=== PATIENT | female | born 1970 | race American Indian/Alaskan Native ===

== ENCOUNTER 2021-06-21 13:00 | Emergency (ER) | payer MEDICAID ==
--- NOTE | 2021-06-21 14:21 | Event Note ---
ED Screening Note Date of service: 06/21/21 Time: 14:19 ED Screening Note: 51-year-old female with a past medical history of schizophrenia presents to the emergency department stating that she needs "someone to help her to talk with her medical doctor so that she can make the best out of the demonstration". She states that she was recently discharged from [facility] but was sent into the [facility] and did not have anywhere to stay because she thinks that someone else took her placement and she is here to speak with someone about it. She denies SI or HI This initial assessment/diagnostic orders/clinical plan/treatment(s) is/are subject to change based on patients health status, clinical progression and re- assessment by fellow clinical providers in the ED. Further treatment and workup at subsequent clinical providers discretion. Patient/guardian urged not to elope from the ED as their condition may be serious if not clinically assessed and managed. Initial orders include:
[2021-06-21 14:56] LABS: Hematocrit 35.9 % (30.3-42.9); Hemoglobin 11.4 gm/dl (10.1-14.3); Mean Corpuscular HGB Conc 32 % (30-34); Mean Corpuscular Volume 90 fl (79-97); Platelet Count 157 K/mm3 (140-440); Red Blood Count 3.97 M/mm3 (3.65-5.03)
[2021-06-21 15:06] LABS: Red Cell Distribution Width 21.4 % (13.2-15.2)
[2021-06-21 15:30] LABS: Alanine Aminotransferase 5 units/L (7-56); Albumin 3.9 g/dL (3.9-5); BUN/Creatinine Ratio 14; Blood Urea Nitrogen 7 mg/dL (7-17); Calcium 8.9 mg/dL (8.4-10.2); Hemolysis Index 6
--- NOTE | 2021-06-21 15:37 | Emergency Department Report ---
ED General Adult HPI - General Chief complaint: Psych Stated complaint: Can you refill these medications for me? Time Seen by Provider: 06/21/21 15:25 Source: patient, RN notes reviewed Mode of arrival: Ambulatory Limitations: Other (The patient is disorganized) - History of Present Illness Initial comments: The patient is a 50-year-old female with a reported history of psychiatric disease, who presents to the ER today with a request for medication refill; she request to have Depakote filled. She denies physical pain. Patient is not homicidal or suicidal. However, the patient is a poor historian, and disorganized. She reports that she was recently discharged from an outside psychiatric facility. However, she is unkempt, and [place] She is not accompanied by friends or family at this time for collateral information or additional history. -: unknown Severity scale (0 -10): 0 - Related Data Allergies Allergy/AdvReac Type Severity Reaction Status Date / Time Penicillins Allergy Anaphylaxis Verified 06/21/21 16:48 ED Review of Systems ROS: Stated complaint: MH EVAL Other details as noted in HPI Comment: Unobtainable due to pts medical conditions Constitutional: denies: fever Respiratory: denies: cough Cardiovascular: denies: chest pain Gastrointestinal: denies: abdominal pain Psychiatric: denies: homicidal thoughts, suicidal thoughts ED Physical Exam - General Limitations: Altered Mental Status, Other (Patient is disorganized and a poor historian) General appearance: anxious - Head Head exam: Present: normocephalic, other (Patient has dirt, wood, and sticks in her hair) - Eye Eye exam: Present: normal appearance, EOMI - ENT ENT exam: Present: normal exam, normal orophraynx, mucous membranes moist, normal external ear exam - Neck Neck exam: Present: normal inspection, full ROM. Absent: tenderness, meningismus - Respiratory Respiratory exam: Absent: respiratory distress, stridor - Cardiovascular Cardiovascular Exam: Absent: JVD - GI/Abdominal GI/Abdominal exam: Present: soft. Absent: distended, tenderness, guarding, storm ound, rigid - Extremities Exam Extremities exam: Present: normal inspection, full ROM. Absent: pedal edema, calf tenderness - Back Exam Back exam: Present: normal inspection. Absent: tenderness, CVA tenderness (R), CVA tenderness (L), paraspinal tenderness, vertebral tenderness - Neurological Exam Neurological exam: Present: alert (Alert and awake to name), other (There is no facial droop. The tongue is midline. EOMI. Ambulatory with a steady gait. 5- 5 strength in 4 extremities) - Psychiatric Psychiatric exam: Present: flat affect. Absent: homicidal ideation, suicidal ideation - Skin Skin exam: Present: warm, dry, intact, normal color. Absent: rash ED Course Vital Signs 06/21/21 13:05 Temperature 97.8 F Pulse Rate 106 H Respiratory 16 Rate Blood Pressure 113/79 [Right] O2 Sat by Pulse 100 Oximetry ED Medical Decision Making - Lab Data Result diagrams: 06/21/21 14:32 06/21/21 14:32 Vital Signs 06/21/21 13:05 Temperature 97.8 F Pulse Rate 106 H Respiratory 16 Rate Blood Pressure 113/79 [Right] O2 Sat by Pulse 100 Oximetry Lab Results 06/21/21 06/21/21 06/21/21 Range/Units 14:32 14:32 14:32 WBC 5.0 (4.5-11.0) K/mm3 RBC 3.97 (3.65-5.03) M/mm3 Hgb 11.4 (10.1-14.3) gm/dl Hct 35.9 (30.3-42.9) % MCV 90 (79-97) fl MCH 29 (28-32) pg MCHC 32 (30-34) % RDW 21.4 H (13.2-15.2) % Plt Count 157 (140-440) K/mm3 Sodium 140 (137-145) mmol/L Potassium 3.3 L (3.6-5.0) mmol/L Chloride 105.3 (98-107) mmol/L Carbon Dioxide 23 (22-30) mmol/L Anion Gap 15 mmol/L BUN 7 (7-17) mg/dL Creatinine 0.5 L (0.6-1.2) mg/dL Estimated GFR > 60 ml/min BUN/Creatinine Ratio 14 % Glucose 92 (65-100) mg/dL Calcium 8.9 (8.4-10.2) mg/dL Total Bilirubin 0.40 (0.1-1.2) mg/dL AST 15 (5-40) units/L ALT 5 L (7-56) units/L Alkaline Phosphatase 86 (35-129) units/L Total Protein 7.3 (6.3-8.2) g/dL Albumin 3.9 (3.9-5) g/dL Albumin/Globulin Ratio 1.1 % Salicylates (2.8-20.0) mg/dL Acetaminophen 5.0 L (10.0-30.0) ug/mL Valproic Acid (50-100) ug/mL Plasma/Serum Alcohol (0-0.07) % 06/21/21 06/21/21 06/21/21 Range/Units 14:32 14:32 14:32 WBC (4.5-11.0) K/mm3 RBC (3.65-5.03) M/mm3 Hgb (10.1-14.3) gm/dl Hct (30.3-42.9) % MCV (79-97) fl MCH (28-32) pg MCHC (30-34) % RDW (13.2-15.2) % Plt Count (140-440) K/mm3 Sodium (137-145) mmol/L Potassium (3.6-5.0) mmol/L Chloride (98-107) mmol/L Carbon Dioxide (22-30) mmol/L Anion Gap mmol/L BUN (7-17) mg/dL Creatinine (0.6-1.2) mg/dL Estimated GFR ml/min BUN/Creatinine Ratio % Glucose (65-100) mg/dL Calcium (8.4-10.2) mg/dL Total Bilirubin (0.1-1.2) mg/dL AST (5-40) units/L ALT (7-56) units/L Alkaline Phosphatase (35-129) units/L Total Protein (6.3-8.2) g/dL Albumin (3.9-5) g/dL Albumin/Globulin Ratio % Salicylates < 0.3 L (2.8-20.0) mg/dL Acetaminophen (10.0-30.0) ug/mL Valproic Acid < 2.8 L (50-100) ug/mL Plasma/Serum Alcohol < 0.01 (0-0.07) % - Medical Decision Making Differential diagnosis, including not limited to: Bipolar, schizophrenia, disorganized behavior, medical clearance for psychiatric placement Assessment and plan: 50-year-old female who is disorganized, lacking in a rational decision making capacity of thought ability, presenting to the ER today with disorganization. 1013 ordered by myself at the recommendation of our psychiatric rural sociologist. Her laboratory studies and physical exam are unremarkable. Urinalysis, urine drug screen and Covid swab pending to facilitate psychiatric placement and disposition. The emergency room will follow along as the patient provides these samples. Laboratory studies are otherwise unremarkable, have initiated oral potassium repletion. At this point in time, this patient does not appear to have an immediate medical contraindication to psychiatric admission, evaluation, consultation and placement. Critical care attestation.: If time is entered above; I have spent that time in minutes in the direct care of this critically ill patient, excluding procedure time. ED Disposition Clinical Impression: Disorganized behavior Disposition: [address] [place] [address] Is pt being admited?: No Does the pt Need Aspirin: No Condition: Good Referrals: DAIJA PACE MD [Primary Care Provider] - 3-5 Days
[2021-06-21] MEDS ORDERED: POTASSIUM CHLORIDE ER 20 MEQ TAB PO NR (17:00)
[2021-06-21] MEDS ORDERED: POTASSIUM CHLORIDE ER 20 MEQ TAB PO ONE (17:47)
[2021-06-21] MEDS ORDERED: LORazepam 2 MG/ML VIAL IM PRN (18:14)
[2021-06-21] MEDS ORDERED: HALOPERIDOL LACTATE 5 MG/1 ML INJ IM PRN (18:14)
[2021-06-21 20:55] LABS: Bilirubin,Urine NEG (Negative); Blood,Urine LG (Negative); Color,Urine Yellow (Yellow); Mucus,Urine FEW /HPF; Protein,Urine <15 mg/dL mg/dL (Negative)
[2021-06-21 21:02] LABS: Amphetamine Screen,Urine Negative; Benzodiazepines Screen,Urine Negative; Cannabinoid Screen,Urine Negative; Cocaine Screen,Urine Negative; Methadone Screen,Urine Negative; Opiate Screen,Urine Negative
[2021-06-22 08:24] VITALS: BP 129/73
[2021-06-22] MEDS ORDERED: POTASSIUM CHLORIDE ER 20 MEQ TAB PO SCH (10:00)
--- NOTE | 2021-06-22 10:05 | Consultation ---
History of Present Illness - Reason for Consult Consult date: 06/22/21 Reason for consult: psychosis - History of Present Psychiatric Illness HPI: The patient is a 50-year-old female with a reported history of psychiatric disease, who presents to the ER today with a request for medication refill; she request to have Depakote filled. She denies physical pain. Patient is not homicidal or suicidal. However, the patient is a poor historian, and disorgan ized. She reports that she was recently discharged from an outside psychiatric facility. However, she is unkempt, and appears to have [place] or [place]. The patient was seen today. She is disorganized and delusional. She is smiling and laughing inappropriately. She is talking loudly. She says her family independence case manager stopped seeing her and is living in her home. She's telling me to go get her out. She says she was at [facility] and discharged. She says this was at the first of the month. She says "I feel like I want a new home." She denies SI/HI or hallucinations. She says "I don't have any of that in my house." She starts laughing. She says she's been off meds, but only states she was on Trazodone. She says she has a history of schizophrenia. PAST PSYCHIATRIC HISTORY Diagnoses: schizophrenia Suicide attempts or Self-harm behavior: Denies Prior psychiatric hospitalizations: yes Substance Abuse history: Denies Previous psychiatric medications tried: trazodone Outpatient treatment: Yes PAST MEDICAL HISTORY: unknown Family Psychiatric History: unknown SOCIAL HISTORY Marital Status: Single Living Arrangements: homeless Employment Status: Disabled Access to guns/weapons: None reported Education: History of Abuse: None reported Legal History: None reported REVIEW OF SYSTEMS Constitutional: Negative for weight loss ENT: Negative for stridor Respiratory: Negative for cough or hemoptysis All other systems reviewed and are negative MENTAL STATUS EXAMINATION General Appearance and Behavior: Age appropriate, good hygiene, wearing appropriate clothes, fair eye contact, calm and cooperative Cooperation: cooperative Mood: good Affect and affective range: Incongruent with mood, laughing inappropriately Thought Process: circumstantial Thought Content: hallucinations Speech: normal tone and pace Suicidal Ideation: Denies Homicidal Ideation: Denies Hallucinations: Auditory Delusions: Yes Impulse Control: Limited Insight and Judgment: Limited insight and judgment, Memory: Normal Attention: Normal Orientation: Alert, oriented x 2 Assessment and Plan (1) Schizophrenia Treatment Plan 1013 Olanzapine 5mg po daily Depakote DR 125mg po BID Trazodone 50mg po qhs Risks, benefits and alternatives of medications discussed with the patient, questions answered and consent obtained from patient. PSYCHOTHERAPY: Supportive psychotherapy provided MEDICAL: Per primary team DELIRIUM PRECAUTIONS: Please re-orient patient frequently, keep lights on during the day, and minimize benzodiazepines and opiates as these medications could worsen patient's confusion. GANG PLANK WORKMAN: Defer to primary DISPOSITION: Recommend acute psychiatric inpatient treatment FOLLOW-UP: Will follow. Thanks Thank you for the consult. Please contact with any questions and/or concerns. Case staffed with Dr. Pat Medications and Allergies Allergies Allergy/AdvReac Type Severity Reaction Status Date / Time Penicillins Allergy Anaphylaxis Verified 06/21/21 16:48 Active Meds: Active Medications Haloperidol Lactate (Haloperidol Lactate 5 Mg/1 Ml Inj) 5 mg IM Q6HR PRN PRN Reason: Agitation Lorazepam (Lorazepam 2 Mg/Ml Vial) 2 mg IM Q4HR PRN PRN Reason: Agitation Potassium Chloride (Potassium Chloride Er 20 Meq Tab) 40 meq PO QDAY YAIMA Last Admin: 06/22/21 10:02 Dose: 40 meq Mental Status Exam - Vital signs Last Vital Signs Temp 97.3 F L 06/22/21 08:24 Pulse 55 L 06/22/21 08:24 Resp 16 06/22/21 08:24 BP 129/73 06/22/21 08:24 Pulse Ox 100 06/22/21 08:24 Results Result Diagrams: 06/21/21 14:32 06/21/21 14:32 Abnormal lab results 06/21/21 06/21/21 06/21/21 Range/Units 14:32 14:32 14:32 RDW 21.4 H (13.2-15.2) % Potassium 3.3 L (3.6-5.0) mmol/L Creatinine 0.5 L (0.6-1.2) mg/dL ALT 5 L (7-56) units/L Salicylates (2.8-20.0) mg/dL Acetaminophen 5.0 L (10.0-30.0) ug/mL Valproic Acid (50-100) ug/mL 06/21/21 06/21/21 Range/Units 14:32 14:32 RDW (13.2-15.2) % Potassium (3.6-5.0) mmol/L Creatinine (0.6-1.2) mg/dL ALT (7-56) units/L Salicylates < 0.3 L (2.8-20.0) mg/dL Acetaminophen (10.0-30.0) ug/mL Valproic Acid < 2.8 L (50-100) ug/mL All other labs normal.
[2021-06-22] MEDS ORDERED: DIVALPROEX DR 125 MG TAB PO SCH (11:00)
--- NOTE | 2021-06-22 12:06 | Event Note ---
Date: 06/22/21 The patient was evaluated in the emergency department for symptoms described in the history of present illness. He/she was evaluated in the context of the global COVID-19 pandemic, which necessitated consideration that the patient might be at risk for infection with the virus that causes COVID-19. Institutional protocols and algorithms that pertain to the evaluation of patients at risk for COVID-19 are in a state of rapid change based on information released by regulatory bodies including the CDC and federal and state organizations. These policies and algorithms were followed during the patient's care in the emergency department. Please note that these policies, procedures and recommendations changed on a rapid basis. Laboratory studies, vital signs, nursing documentation, ER documentation, and psychiatric documentation are reviewed and appreciated. Nursing team reports no acute events this morning or concerns. The patient is awake and in no acute distress The patient was deemed medically suitable for psychiatric disposition and placement during her initial ER evaluation. The patient continues to remain medically suitable for psychiatric placement and disposition. sHe is currently pending psychiatric placement. The patient was accepted to the floor for psychiatric unit, and she is pleasant and cooperative at this point in time. Nursing team reports no issues at this time Patient will be discharged to our fifth floor psychiatric unit. Vital Signs 06/21/21 06/21/21 06/22/21 13:05 19:53 03:32 Temperature 97.8 F 98.9 F 97.7 F Pulse Rate 106 H 60 60 Respiratory 16 16 16 Rate Blood Pressure 113/79 129/80 141/57 [Right] O2 Sat by Pulse 100 100 99 Oximetry 06/22/21 06/22/21 05:05 08:24 Temperature 97.3 F L Pulse Rate 55 L Respiratory 18 16 Rate Blood Pressure 129/73 [Right] O2 Sat by Pulse 98 100 Oximetry Lab Results 06/21/21 06/21/21 06/21/21 Range/Units 14:32 14:32 14:32 WBC 5.0 (4.5-11.0) K/mm3 RBC 3.97 (3.65-5.03) M/mm3 Hgb 11.4 (10.1-14.3) gm/dl Hct 35.9 (30.3-42.9) % MCV 90 (79-97) fl MCH 29 (28-32) pg MCHC 32 (30-34) % RDW 21.4 H (13.2-15.2) % Plt Count 157 (140-440) K/mm3 Sodium 140 (137-145) mmol/L Potassium 3.3 L (3.6-5.0) mmol/L Chloride 105.3 (98-107) mmol/L Carbon Dioxide 23 (22-30) mmol/L Anion Gap 15 mmol/L BUN 7 (7-17) mg/dL Creatinine 0.5 L (0.6-1.2) mg/dL Estimated GFR > 60 ml/min BUN/Creatinine Ratio 14 % Glucose 92 (65-100) mg/dL Calcium 8.9 (8.4-10.2) mg/dL Total Bilirubin 0.40 (0.1-1.2) mg/dL AST 15 (5-40) units/L ALT 5 L (7-56) units/L Alkaline Phosphatase 86 (35-129) units/L Total Protein 7.3 (6.3-8.2) g/dL Albumin 3.9 (3.9-5) g/dL Albumin/Globulin Ratio 1.1 % Urine Color (Yellow) Urine Turbidity (Clear) Urine pH (5.0-7.0) Ur Specific [place] (1.003-1.030) Urine Protein (Negative) mg/dL Urine Glucose (UA) (Negative) mg/dL Urine Ketones (Negative) mg/dL Urine Blood (Negative) Urine Nitrite (Negative) Urine Bilirubin (Negative) Urine Urobilinogen (<2.0) mg/dL Ur Leukocyte Esterase (Negative) Urine WBC (Auto) (0.0-6.0) /HPF Urine RBC (Auto) (0.0-6.0) /HPF U Epithel Cells (Auto) (0-13.0) /HPF Urine Mucus /HPF Salicylates (2.8-20.0) mg/dL Urine Opiates Screen Urine Methadone Screen Acetaminophen 5.0 L (10.0-30.0) ug/mL Ur Barbiturates Screen Valproic Acid (50-100) ug/mL Ur Phencyclidine Scrn Ur Amphetamines Screen U Benzodiazepines Scrn Urine Cocaine Screen U Marijuana (THC) Screen Drugs of Abuse Note Plasma/Serum Alcohol (0-0.07) % SARS-CoV-2 (PCR) (Negative) 06/21/21 06/21/21 06/21/21 Range/Units 14:32 14:32 14:32 WBC (4.5-11.0) K/mm3 RBC (3.65-5.03) M/mm3 Hgb (10.1-14.3) gm/dl Hct (30.3-42.9) % MCV (79-97) fl MCH (28-32) pg MCHC (30-34) % RDW (13.2-15.2) % Plt Count (140-440) K/mm3 Sodium (137-145) mmol/L Potassium (3.6-5.0) mmol/L Chloride (98-107) mmol/L Carbon Dioxide (22-30) mmol/L Anion Gap mmol/L BUN (7-17) mg/dL Creatinine (0.6-1.2) mg/dL Estimated GFR ml/min BUN/Creatinine Ratio % Glucose (65-100) mg/dL Calcium (8.4-10.2) mg/dL Total Bilirubin (0.1-1.2) mg/dL AST (5-40) units/L ALT (7-56) units/L Alkaline Phosphatase (35-129) units/L Total Protein (6.3-8.2) g/dL Albumin (3.9-5) g/dL Albumin/Globulin Ratio % Urine Color (Yellow) Urine Turbidity (Clear) Urine pH (5.0-7.0) Ur Specific [place] (1.003-1.030) Urine Protein (Negative) mg/dL Urine Glucose (UA) (Negative) mg/dL Urine Ketones (Negative) mg/dL Urine Blood (Negative) Urine Nitrite (Negative) Urine Bilirubin (Negative) Urine Urobilinogen (<2.0) mg/dL Ur Leukocyte Esterase (Negative) Urine WBC (Auto) (0.0-6.0) /HPF Urine RBC (Auto) (0.0-6.0) /HPF U Epithel Cells (Auto) (0-13.0) /HPF Urine Mucus /HPF Salicylates < 0.3 L (2.8-20.0) mg/dL Urine Opiates Screen Urine Methadone Screen Acetaminophen (10.0-30.0) ug/mL Ur Barbiturates Screen Valproic Acid < 2.8 L (50-100) ug/mL Ur Phencyclidine Scrn Ur Amphetamines Screen U Benzodiazepines Scrn Urine Cocaine Screen U Marijuana (THC) Screen Drugs of Abuse Note Plasma/Serum Alcohol < 0.01 (0-0.07) % SARS-CoV-2 (PCR) (Negative) 06/21/21 06/21/21 06/22/21 Range/Units Unknown Unknown 08:15 WBC (4.5-11.0) K/mm3 RBC (3.65-5.03) M/mm3 Hgb (10.1-14.3) gm/dl Hct (30.3-42.9) % MCV (79-97) fl MCH (28-32) pg MCHC (30-34) % RDW (13.2-15.2) % Plt Count (140-440) K/mm3 Sodium (137-145) mmol/L Potassium (3.6-5.0) mmol/L Chloride (98-107) mmol/L Carbon Dioxide (22-30) mmol/L Anion Gap mmol/L BUN (7-17) mg/dL Creatinine (0.6-1.2) mg/dL Estimated GFR ml/min BUN/Creatinine Ratio % Glucose (65-100) mg/dL Calcium (8.4-10.2) mg/dL Total Bilirubin (0.1-1.2) mg/dL AST (5-40) units/L ALT (7-56) units/L Alkaline Phosphatase (35-129) units/L Total Protein (6.3-8.2) g/dL Albumin (3.9-5) g/dL Albumin/Globulin Ratio % Urine Color Yellow (Yellow) Urine Turbidity Clear (Clear) Urine pH 6.0 (5.0-7.0) Ur Specific [place] 1.009 (1.003-1.030) Urine Protein <15 mg/dl (Negative) mg/dL Urine Glucose (UA) Neg (Negative) mg/dL Urine Ketones Neg (Negative) mg/dL Urine Blood Lg (Negative) Urine Nitrite Neg (Negative) Urine Bilirubin Neg (Negative) Urine Urobilinogen 4.0 (<2.0) mg/dL Ur Leukocyte Esterase Neg (Negative) Urine WBC (Auto) 4.0 (0.0-6.0) /HPF Urine RBC (Auto) 2.0 (0.0-6.0) /HPF U Epithel Cells (Auto) 8.0 (0-13.0) /HPF Urine Mucus Few /HPF Salicylates (2.8-20.0) mg/dL Urine Opiates Screen Negative Urine Methadone Screen Negative Acetaminophen (10.0-30.0) ug/mL Ur Barbiturates Screen Negative Valproic Acid (50-100) ug/mL Ur Phencyclidine Scrn Negative Ur Amphetamines Screen Negative U Benzodiazepines Scrn Negative Urine Cocaine Screen Negative U Marijuana (THC) Screen Negative Drugs of Abuse Note Disclamer Plasma/Serum Alcohol (0-0.07) % SARS-CoV-2 (PCR) Negative (Negative)
[2021-06-22] MEDS ORDERED: traZODone 50 MG TAB PO SCH (22:00)
== END 2021-06-22 12:02 ==
LOC: ED 13:00
DX: F20.1 Disorganized schizophrenia (principal); Z20.822 Contact with and (suspected) exposure to COVID-19; Z88.0 Allergy status to penicillin
CPT/HCPCS: 36415; 80053; 80164; 80307; 81001; 85027; 99285; U0003; 80320; G0480

== ENCOUNTER 2021-06-22 11:01 | Inpatient (IN) | payer MEDICAID ==
[2021-06-22 14:21] LABS: Basophils # (Auto) 0.1 K/mm3 (0.0-0.1); Basophils % (Auto) 1.4 % (0.0-1.8); Eosinophils # (Auto) 0.1 K/mm3 (0.0-0.4); Eosinophils % (Auto) 1.8 % (0.0-4.3); Hematocrit 29.9 % (30.3-42.9); Hemoglobin 10.1 gm/dl (10.1-14.3); Lymphocytes # (Auto) 1.7 K/mm3 (1.2-5.4); Lymphocytes % (Auto) 44.8 % (13.4-35.0); Mean Corpuscular HGB Conc 34 % (30-34); Mean Corpuscular Volume 89 fl (79-97); Monocytes # (Auto) 0.5 K/mm3 (0.0-0.8); Monocytes % (Auto) 12.8 % (0.0-7.3); Platelet Count 152 K/mm3 (140-440); Red Blood Count 3.36 M/mm3 (3.65-5.03)
[2021-06-22 14:23] LABS: Red Cell Distribution Width 21.4 % (13.2-15.2)
[2021-06-22 14:40] LABS: Albumin 3.5 g/dL (3.9-5); Blood Urea Nitrogen 13 mg/dL (7-17); Chol/HDL Ratio 2.65 %; HDL Cholesterol 55 mg/dL (40-59); Hemolysis Index 4; LDL Cholesterol,Direct 79 mg/dL (50-130)
[2021-06-22 15:01] LABS: Alanine Aminotransferase < 5 units/L (7-56); BUN/Creatinine Ratio 22
--- NOTE | 2021-06-23 08:32 | History and Physical Report ---
GP History & Physical - History of Present Illness Date of admission: 06/29/21 Date of Examination: 06/23/21 Reason for Admission: Danger to self, Failure of Outpatient Treatment, Severe anxiety/depression History of Present Illness: HPI: The patient is a 50-year-old female with a reported history of psychiatric disease, who presents to the ER today with a request for medication refill; she request to have Depakote filled. She denies physical pain. Patient is not homicidal or suicidal. However, the patient is a poor historian, and disorganized. She reports that she was recently discharged from an outside psychiatric facility. However, she is unkempt, and appears to have been living in the [place] or [place]. ER note: The patient was seen today. She is disorganized and delusional. She is smiling and laughing inappropriately. She is talking loudly. She says her high risk case manager stopped seeing her and is living in her home. She's telling me to go get her out. She says she was at [place] and discharged. She says this was at the first of the month. She says "I feel like I want a new home." She denies SI/HI or hallucinations. She says "I don't have any of that in my house." She starts laughing. She says she's been off meds, but only states she was on Trazodone. She says she has a history of schizophrenia. The patient was seen today. She was first seen by me in the ER. During her evaluation, the patient is psychotic. She walks by me fast as I'm trying to talk with her. She is mumbling to herself. I later go to the patient's room to talk with her. She says she's not doing well because she's "trying to have secret prayer." The patient says "I'm trying to ask my high risk case manager for the same building I was in." She denies SI/HI. When I ask her about any hallucinations, the patient covers her head up with linen and doesn't answer any more questions. PAST PSYCHIATRIC HISTORY Diagnoses: schizophrenia Suicide attempts or Self-harm behavior: Denies Prior psychiatric hospitalizations: yes Substance Abuse history: Denies Previous psychiatric medications tried: trazodone Outpatient treatment: Yes PAST MEDICAL HISTORY: unknown Family Psychiatric History: unknown SOCIAL HISTORY Marital Status: Single Living Arrangements: homeless Employment Status: Disabled Access to guns/weapons: None reported Education: History of Abuse: None reported Legal History: None reported REVIEW OF SYSTEMS Constitutional: Negative for weight loss ENT: Negative for stridor Respiratory: Negative for cough or hemoptysis All other systems reviewed and are negative MENTAL STATUS EXAMINATION General Appearance and Behavior: Age appropriate, good hygiene, wearing appropriate clothes, fair eye contact, cooperative Cooperation: cooperative Mood: not good Affect and affective range: Incongruent with mood Thought Process: illogical Thought Content: hallucinations Speech: normal tone and pace Suicidal Ideation: Denies Homicidal Ideation: Denies Hallucinations: Auditory Delusions: Yes Impulse Control: Limited Insight and Judgment: Limited insight and judgment, Memory: Normal Attention: Normal Orientation: Alert, oriented x 2 Assessment and Plan (1) Schizophrenia Treatment Plan Patient admitted for inpatient psychiatric evaluation, medication adjustment and close monitoring The patient's behavior, mood, sleep and appetite will be closely monitored. Patient enrolled in individual and group therapeutic sessions and encouraged to attend. Patient provided with a safe and structured environment. Patient's physical health needs will be addressed by the Hospitalist. Hospitalist Consulted Labs including CBC, CMP, Lipid profile and Hemoglobin A1C levels ordered for baseline reference Social Assessment will be completed and the Street Contractor will work with p atient and family to ensure a suitable and safe disposition Medication adjustment will be made as clinically indicated Increased Depakote 250mg po BID Increased Olanzapine 10mg po daily Start Trazodone 50mg po qhs Usual Wellness Yazidi/Preservation: - Start Trazodone 50 mg po QHS & 50 mg po QHS PRN between 10 PM & 2 AM for insomnia - Start Melatonin 5 mg po QHS to promote circadian rhythm The patient agreed on the treatment plan, understood the risk, benefit, alternative treatment, potential consequence of no treatment, and gave informed consent. Estimated days: 7 Post hospital care: primary care provider, psychiatric provider Case staffed with Dr. Pat Legal Status: Voluntary Reaction to Hospitalization: Accepting Medications and Allergies Allergies Allergy/AdvReac Type Severity Reaction Status Date / Time Penicillins Allergy Anaphylaxis Verified 06/21/21 16:48 Home Medications Medication Instructions Recorded Confirmed Last Taken Type Divalproex Sprinkle [DepaKOTE 125 mg PO BID 06/22/21 06/22/21 06/22/21 History SPRINKLE] OLANzapine [ZyPREXA] 5 mg PO QDAY 06/22/21 06/22/21 06/22/21 History Results - Results Labs/Vitals: Laboratory Last Values WBC 3.9 K/mm3 (4.5-11.0) L 06/22/21 14:05 RBC 3.36 M/mm3 (3.65-5.03) L 06/22/21 14:05 Hgb 10.1 gm/dl (10.1-14.3) 06/22/21 14:05 Hct 29.9 % (30.3-42.9) L D 06/22/21 14:05 MCV 89 fl (79-97) 06/22/21 14:05 MCH 30 pg (28-32) 06/22/21 14:05 MCHC 34 % (30-34) 06/22/21 14:05 RDW 21.4 % (13.2-15.2) H 06/22/21 14:05 Plt Count 152 K/mm3 (140-440) 06/22/21 14:05 Lymph % (Auto) 44.8 % (13.4-35.0) H 06/22/21 14:05 [place] % (Auto) 12.8 % (0.0-7.3) H 06/22/21 14:05 Eos % (Auto) 1.8 % (0.0-4.3) 06/22/21 14:05 Baso % (Auto) 1.4 % (0.0-1.8) 06/22/21 14:05 Lymph # (Auto) 1.7 K/mm3 (1.2-5.4) 06/22/21 14:05 [place] # (Auto) 0.5 K/mm3 (0.0-0.8) 06/22/21 14:05 Eos # (Auto) 0.1 K/mm3 (0.0-0.4) 06/22/21 14:05 Baso # (Auto) 0.1 K/mm3 (0.0-0.1) 06/22/21 14:05 Seg Neutrophils % 39.2 % (40.0-70.0) L 06/22/21 14:05 Seg Neutrophils # 1.5 K/mm3 (1.8-7.7) L 06/22/21 14:05 Sodium 138 mmol/L (137-145) 06/22/21 14:05 Potassium 4.0 mmol/L (3.6-5.0) D 06/22/21 14:05 Chloride 104.2 mmol/L (98-107) 06/22/21 14:05 Carbon Dioxide 23 mmol/L (22-30) 06/22/21 14:05 Anion Gap 15 mmol/L 06/22/21 14:05 BUN 13 mg/dL (7-17) 06/22/21 14:05 Creatinine 0.6 mg/dL (0.6-1.2) 06/22/21 14:05 Estimated GFR > 60 ml/min 06/22/21 14:05 BUN/Creatinine Ratio 22 % 06/22/21 14:05 Glucose 115 mg/dL (65-100) H 06/22/21 14:05 Hemoglobin A1c < 4.0 % (4-6) L 06/22/21 14:05 Calcium 9.0 mg/dL (8.4-10.2) 06/22/21 14:05 Total Bilirubin 0.20 mg/dL (0.1-1.2) 06/22/21 14:05 AST 11 units/L (5-40) 06/22/21 14:05 ALT < 5 units/L (7-56) L 06/22/21 14:05 Alkaline Phosphatase 78 units/L (35-129) 06/22/21 14:05 Total Protein 6.3 g/dL (6.3-8.2) 06/22/21 14:05 Albumin 3.5 g/dL (3.9-5) L 06/22/21 14:05 Albumin/Globulin Ratio 1.3 % 06/22/21 14:05 Triglycerides 71 mg/dL (2-149) 06/22/21 14:05 Cholesterol 146 mg/dL (50-199) 06/22/21 14:05 LDL Cholesterol Direct 79 mg/dL (50-130) 06/22/21 14:05 HDL Cholesterol 55 mg/dL (40-59) 06/22/21 14:05 Cholesterol/HDL Ratio 2.65 % 06/22/21 14:05 TSH 0.730 mlU/mL (0.270-4.200) 06/22/21 14:05 Last Vital Signs Temp 98.9 F 06/22/21 21:36 Pulse 58 L 06/22/21 21:36 Resp 16 06/22/21 21:36 BP 115/65 06/22/21 21:36 Pulse Ox 95 06/22/21 21:36 Physical Examination - Constitutional Vitals: Vital Signs Temp Pulse Resp BP Pulse Ox 98.9 F 58 L 16 115/65 95 06/22/21 21:36 06/22/21 21:36 06/22/21 21:36 06/22/21 21:36 06/22/21 21:36 Temperature -Last 24 Hours Temperature 98.9 F Temperature 97.5 F Mental Status Exam - Vital signs Last Vital Signs Temp 98.9 F 06/22/21 21:36 Pulse 58 L 06/22/21 21:36 Resp 16 06/22/21 21:36 BP 115/65 06/22/21 21:36 Pulse Ox 95 06/22/21 21:36 Physician Certification - Certification Statement Physician Certification Statement: This is an acknowledgement statement that JUDE CHURCHILL is a 50 year old F who requires inpatient psychiatric admission for treatment which could reasonably be expected to improve the patient's condition for Estimated period of time patient will need to remain in the hospital: [ ] Plan for post-hospital care: [ ]
[2021-06-23] MEDS: DIVALPROEX SPRINKLE 125 MG CAP PO SCH ×2 (09:51→22:19)
[2021-06-23] MEDS ORDERED: DIVALPROEX SPRINKLE 125 MG CAP PO SCH (10:00)
--- NOTE | 2021-06-23 10:45 | Consultation ---
History of Present Illness - Reason for Consult Consult date: 06/23/21 Medical management - History of Present Illness 50-year-old female with history of schizophrenia who presented for inpatient psychiatric care. Per the patient she was recently released from outpatient psych facility. She is currently homeless and in need of her psych medications. Her hope is to "get back on track" while here. She having any chronic medical issues. She is only taking psych meds at this time. She occasionally takes cough syrup once a day out of habit. She currently smokes 6 cigarettes/day and denies using alcohol or illicit drugs currently. Review of systems reviewed with the patient and are negative. Vital signs and admission labs were reviewed. Past History Past Medical History: other (schizophrenia). denies: acute MN, COPD, diabetes, hypertension Past Surgical History: No surgical history Social history: smoking (6 cigarettes daily.) Family history: no significant family history Medications and Allergies Allergies Allergy/AdvReac Type Severity Reaction Status Date / Time Penicillins Allergy Anaphylaxis Verified 06/21/21 16:48 Home Medications Medication Instructions Recorded Confirmed Last Taken Type Divalproex Sprinkle [DepaKOTE 125 mg PO BID 06/22/21 06/22/21 06/22/21 History SPRINKLE] OLANzapine [ZyPREXA] 5 mg PO QDAY 06/22/21 06/22/21 06/22/21 History Active Meds: Active Medications Divalproex Sodium (Divalproex Sprinkle 125 Mg Cap) 250 mg PO BID [facility] Last Admin: 06/23/21 09:51 Dose: 250 mg Olanzapine (Olanzapine 5 Mg Tab) 10 mg PO QDAY [facility] Last Admin: 06/23/21 09:51 Dose: 10 mg Trazodone HCl (Trazodone 50 Mg Tab) 50 mg PO QHS [facility] Review of Systems All systems: negative Exam - Physical Exam Narrative exam: GENERAL: Thin woman. Sitting in a chair, in no acute distress. HEENT: Normocephalic. Atraumatic. NECK: Supple. CHEST/LUNGS: CTAB on room air HEART/CARDIOVASCULAR: RRR. No murmur, rubs or gallops appreciated. ABDOMEN: +BS. NT/ND. SKIN: No rashes noted. NEURO: No focal motor deficit. Follows all commands and is ambulatory. MUSCULOSKELETAL: No joint effusion EXTREMITIES: No cyanosis, clubbing or edema. PSYCH: Cooperative. Denies SI/HI. - Constitutional Vitals: Temp Pulse Resp BP Pulse Ox 98.9 F 58 L 16 115/65 95 06/22/21 21:36 06/22/21 21:36 06/22/21 21:36 06/22/21 21:36 06/22/21 21:36 Results - Labs CBC & Chem 7: 06/22/21 14:05 06/22/21 14:05 Labs: Abnormal lab results 06/22/21 06/22/21 06/22/21 Range/Units 14:05 14:05 14:05 WBC 3.9 L (4.5-11.0) K/mm3 RBC 3.36 L (3.65-5.03) M/mm3 Hct 29.9 L D (30.3-42.9) % RDW 21.4 H (13.2-15.2) % Lymph % (Auto) 44.8 H (13.4-35.0) % [place] % (Auto) 12.8 H (0.0-7.3) % Seg Neutrophils % 39.2 L (40.0-70.0) % Seg Neutrophils # 1.5 L (1.8-7.7) K/mm3 Glucose 115 H (65-100) mg/dL Hemoglobin A1c < 4.0 L (4-6) % ALT < 5 L (7-56) units/L Albumin 3.5 L (3.9-5) g/dL Assessment and Plan 50-year-old woman with history of schizophrenia who was admitted to the geriatri c psych unit for inpatient treatment. Currently clinically stable. #Schizophrenia -Management per primary -Resume psychotropic meds #Tobacco dependence -declined nicotine patch -Smoking cessation counseling, supportive care, behavior change counseling, +15 minutes. Thank you for this consult. Please call with any concerns or questions.
[2021-06-23] MEDS: traZODone 50 MG TAB PO SCH (22:18)
[2021-06-24] MEDS: DIVALPROEX SPRINKLE 125 MG CAP PO SCH ×3 (09:25→20:19)
--- NOTE | 2021-06-24 13:06 | Progress Note ---
Subjective Date of service: 06/24/21 Principal diagnosis: Schizophrenia Subjective Comment: The patient was seen today. She is psychotic. She is delusional, and heard talking to herself. Her mood is elevated. She says she wants to meet with me one on one for her "work out of how I'm being shifted." She says "I feel better and much in orbit." The patient then says "I feel defined, arranged and in the [place] spirit." Praise Good. She denies SI/HI. REVIEW OF SYSTEMS Constitutional: Negative for weight loss ENT: Negative for stridor Respiratory: Negative for cough or hemoptysis All other systems reviewed and are negative MENTAL STATUS EXAMINATION General Appearance and Behavior: Age appropriate, good hygiene, wearing appropriate clothes, fair eye contact, cooperative Cooperation: cooperative Mood: not good Affect and affective range: Incongruent with mood Thought Process: illogical Thought Content: hallucinations Speech: normal tone and pace Suicidal Ideation: Denies Homicidal Ideation: Denies Hallucinations: Auditory Delusions: Yes Impulse Control: Limited Insight and Judgment: Limited insight and judgment, Memory: Normal Attention: Normal Orientation: Alert, oriented x 2 Assessment and Plan (1) Schizophrenia Treatment Plan Patient admitted for inpatient psychiatric evaluation, medication adjustment and close monitoring The patient's behavior, mood, sleep and appetite will be closely monitored. Patient enrolled in individual and group therapeutic sessions and encouraged to attend. Patient provided with a safe and structured environment. Patient's physical health needs will be addressed by the Hospitalist. Hospitalist Consulted Labs including CBC, CMP, Lipid profile and Hemoglobin A1C levels ordered for baseline reference Social Assessment will be completed and the Senior Industrial Engineer will work with patient and family to ensure a suitable and safe disposition Medication adjustment will be made as clinically indicated Increased Depakote 250mg po TID Increased Olanzapine 15mg po daily Usual Wellness Protestant/Preservation: - Start Trazodone 50 mg po QHS & 50 mg po QHS PRN between 10 PM & 2 AM for insomnia - Start Melatonin 5 mg po QHS to promote circadian rhythm The patient agreed on the treatment plan, understood the risk, benefit, alternative treatment, potential consequence of no treatment, and gave informed consent. Estimated days: 7 Post hospital care: primary care provider, psychiatric provider Case staffed with Dr. Pat Medications and Allergies Allergies Allergy/AdvReac Type Severity Reaction Status Date / Time Penicillins Allergy Anaphylaxis Verified 06/21/21 16:48 Home Medications Medication Instructions Recorded Confirmed Last Taken Type Divalproex Sprinkle [DepaKOTE 125 mg PO BID 06/22/21 06/22/21 06/22/21 History SPRINKLE] OLANzapine [ZyPREXA] 5 mg PO QDAY 06/22/21 06/22/21 06/22/21 History Active Meds: Active Medications Divalproex Sodium (Divalproex Sprinkle 125 Mg Cap) 250 mg PO BID [facility] Last Admin: 06/24/21 09:25 Dose: 250 mg Olanzapine (Olanzapine 5 Mg Tab) 10 mg PO QDAY [facility] Last Admin: 06/24/21 09:25 Dose: 10 mg Trazodone HCl (Trazodone 50 Mg Tab) 50 mg PO QHS [facility] Last Admin: 06/23/21 22:18 Dose: 50 mg Results - Results Labs/Vitals: Laboratory Last Values WBC 3.9 K/mm3 (4.5-11.0) L 06/22/21 14:05 RBC 3.36 M/mm3 (3.65-5.03) L 06/22/21 14:05 Hgb 10.1 gm/dl (10.1-14.3) 06/22/21 14:05 Hct 29.9 % (30.3-42.9) L D 06/22/21 14:05 MCV 89 fl (79-97) 06/22/21 14:05 MCH 30 pg (28-32) 06/22/21 14:05 MCHC 34 % (30-34) 06/22/21 14:05 RDW 21.4 % (13.2-15.2) H 06/22/21 14:05 Plt Count 152 K/mm3 (140-440) 06/22/21 14:05 Lymph % (Auto) 44.8 % (13.4-35.0) H 06/22/21 14:05 [place] % (Auto) 12.8 % (0.0-7.3) H 06/22/21 14:05 Eos % (Auto) 1.8 % (0.0-4.3) 06/22/21 14:05 Baso % (Auto) 1.4 % (0.0-1.8) 06/22/21 14:05 Lymph # (Auto) 1.7 K/mm3 (1.2-5.4) 06/22/21 14:05 [place] # (Auto) 0.5 K/mm3 (0.0-0.8) 06/22/21 14:05 Eos # (Auto) 0.1 K/mm3 (0.0-0.4) 06/22/21 14:05 Baso # (Auto) 0.1 K/mm3 (0.0-0.1) 06/22/21 14:05 Seg Neutrophils % 39.2 % (40.0-70.0) L 06/22/21 14:05 Seg Neutrophils # 1.5 K/mm3 (1.8-7.7) L 06/22/21 14:05 Sodium 138 mmol/L (137-145) 06/22/21 14:05 Potassium 4.0 mmol/L (3.6-5.0) D 06/22/21 14:05 Chloride 104.2 mmol/L (98-107) 06/22/21 14:05 Carbon Dioxide 23 mmol/L (22-30) 06/22/21 14:05 Anion Gap 15 mmol/L 06/22/21 14:05 BUN 13 mg/dL (7-17) 06/22/21 14:05 Creatinine 0.6 mg/dL (0.6-1.2) 06/22/21 14:05 Estimated GFR > 60 ml/min 06/22/21 14:05 BUN/Creatinine Ratio 22 % 06/22/21 14:05 Glucose 115 mg/dL (65-100) H 06/22/21 14:05 Hemoglobin A1c < 4.0 % (4-6) L 06/22/21 14:05 Calcium 9.0 mg/dL (8.4-10.2) 06/22/21 14:05 Total Bilirubin 0.20 mg/dL (0.1-1.2) 06/22/21 14:05 AST 11 units/L (5-40) 06/22/21 14:05 ALT < 5 units/L (7-56) L 06/22/21 14:05 Alkaline Phosphatase 78 units/L (35-129) 06/22/21 14:05 Total Protein 6.3 g/dL (6.3-8.2) 06/22/21 14:05 Albumin 3.5 g/dL (3.9-5) L 06/22/21 14:05 Albumin/Globulin Ratio 1.3 % 06/22/21 14:05 Triglycerides 71 mg/dL (2-149) 06/22/21 14:05 Cholesterol 146 mg/dL (50-199) 06/22/21 14:05 LDL Cholesterol Direct 79 mg/dL (50-130) 06/22/21 14:05 HDL Cholesterol 55 mg/dL (40-59) 06/22/21 14:05 Cholesterol/HDL Ratio 2.65 % 06/22/21 14:05 TSH 0.730 mlU/mL (0.270-4.200) 06/22/21 14:05 Last Vital Signs Temp 98.0 F 06/24/21 08:14 Pulse 70 06/24/21 08:14 Resp 16 06/24/21 08:14 BP 122/71 06/24/21 08:14 Pulse Ox 99 06/24/21 08:14
[2021-06-24] MEDS: traZODone 50 MG TAB PO SCH (21:14)
[2021-06-25] MEDS: DIVALPROEX SPRINKLE 125 MG CAP PO SCH ×3 (08:00→21:45)
--- NOTE | 2021-06-25 10:20 | Progress Note ---
Subjective Date of service: 06/25/21 Principal diagnosis: Schizophrenia Subjective Comment: 06/25/21: The patient was seen at breakfast. She continues to be disorganized and hyperverbal. She is complaining about placement stating that someone lives at her house and that she wants to live by herself. She states she feels better. she denies any current suicidal/homicidal ideation and denies hallucinations. The patient is receptive to receiving Haldol Dec CHO. 06/24/21:The patient was seen today. She is psychotic. She is delusional, and heard talking to herself. Her mood is elevated. She says she wants to meet with me one on one for her "work out of how I'm being shifted." She says "I feel better and much in orbit." The patient then says "I feel defined, arranged and in the [place] spirit." Praise Good. She denies SI/HI. REVIEW OF SYSTEMS Constitutional: Negative for weight loss ENT: Negative for stridor Respiratory: Negative for cough or hemoptysis All other systems reviewed and are negative MENTAL STATUS EXAMINATION General Appearance and Behavior: Age appropriate, good hygiene, wearing appropriate clothes, fair eye contact, cooperative Cooperation: cooperative Mood: not good Affect and affective range: Incongruent with mood Thought Process: illogical Thought Content: hallucinations Speech: normal tone and pace Suicidal Ideation: Denies Homicidal Ideation: Denies Hallucinations: Auditory Delusions: Yes Impulse Control: Limited Insight and Judgment: Limited insight and judgment, Memory: Normal Attention: Normal Orientation: Alert, oriented x 2 Assessment and Plan (1) Schizophrenia Treatment Plan Patient admitted for inpatient psychiatric evaluation, medication adjustment and close monitoring The patient's behavior, mood, sleep and appetite will be closely monitored. Patient enrolled in individual and group therapeutic sessions and encouraged to attend. Patient provided with a safe and structured environment. Patient's physical health needs will be addressed by the Hospitalist. Hospitalist Consulted Labs including CBC, CMP, Lipid profile and Hemoglobin A1C levels ordered for baseline reference Social Assessment will be completed and the Radioactivity Technician will work with patient and family to ensure a suitable and safe disposition Medication adjustment will be made as clinically indicated Continue Depakote 250mg po TID Start Haldol 5mg po BID Haldol DEC 50mg IM X1 Usual Wellness Baptism/Preservation: - Start Trazodone 50 mg po QHS & 50 mg po QHS PRN between 10 PM & 2 AM for insomnia - Start Melatonin 5 mg po QHS to promote circadian rhythm The patient agreed on the treatment plan, understood the risk, benefit, alternative treatment, potential consequence of no treatment, and gave informed consent. Estimated days: 6 Post hospital care: primary care provider, psychiatric provider Case staffed with Dr. Pat Medications and Allergies Medications and Allergies Allergies Allergy/AdvReac Type Severity Reaction Status Date / Time Penicillins Allergy Anaphylaxis Verified 06/21/21 16:48 Home Medications Medication Instructions Recorded Confirmed Last Taken Type Divalproex Sprinkle [DepaKOTE 125 mg PO BID 06/22/21 06/22/21 06/22/21 History SPRINKLE] OLANzapine [ZyPREXA] 5 mg PO QDAY 06/22/21 06/22/21 06/22/21 History Active Meds: Active Medications Divalproex Sodium (Divalproex Sprinkle 125 Mg Cap) 250 mg PO TID [facility] Last Admin: 06/25/21 08:00 Dose: 250 mg Olanzapine (Olanzapine 7.5 Mg Tab) 15 mg PO QDAY [facility] Last Admin: 06/25/21 09:17 Dose: 15 mg Trazodone HCl (Trazodone 50 Mg Tab) 50 mg PO QHS [facility] Last Admin: 06/24/21 21:14 Dose: 50 mg Results - Results Labs/Vitals: Laboratory Last Values WBC 3.9 K/mm3 (4.5-11.0) L 06/22/21 14:05 RBC 3.36 M/mm3 (3.65-5.03) L 06/22/21 14:05 Hgb 10.1 gm/dl (10.1-14.3) 06/22/21 14:05 Hct 29.9 % (30.3-42.9) L D 06/22/21 14:05 MCV 89 fl (79-97) 06/22/21 14:05 MCH 30 pg (28-32) 06/22/21 14:05 MCHC 34 % (30-34) 06/22/21 14:05 RDW 21.4 % (13.2-15.2) H 06/22/21 14:05 Plt Count 152 K/mm3 (140-440) 06/22/21 14:05 Lymph % (Auto) 44.8 % (13.4-35.0) H 06/22/21 14:05 [place] % (Auto) 12.8 % (0.0-7.3) H 06/22/21 14:05 Eos % (Auto) 1.8 % (0.0-4.3) 06/22/21 14:05 Baso % (Auto) 1.4 % (0.0-1.8) 06/22/21 14:05 Lymph # (Auto) 1.7 K/mm3 (1.2-5.4) 06/22/21 14:05 [place] # (Auto) 0.5 K/mm3 (0.0-0.8) 06/22/21 14:05 Eos # (Auto) 0.1 K/mm3 (0.0-0.4) 06/22/21 14:05 Baso # (Auto) 0.1 K/mm3 (0.0-0.1) 06/22/21 14:05 Seg Neutrophils % 39.2 % (40.0-70.0) L 06/22/21 14:05 Seg Neutrophils # 1.5 K/mm3 (1.8-7.7) L 06/22/21 14:05 Sodium 138 mmol/L (137-145) 06/22/21 14:05 Potassium 4.0 mmol/L (3.6-5.0) D 06/22/21 14:05 Chloride 104.2 mmol/L (98-107) 06/22/21 14:05 Carbon Dioxide 23 mmol/L (22-30) 06/22/21 14:05 Anion Gap 15 mmol/L 06/22/21 14:05 BUN 13 mg/dL (7-17) 06/22/21 14:05 Creatinine 0.6 mg/dL (0.6-1.2) 06/22/21 14:05 Estimated GFR > 60 ml/min 06/22/21 14:05 BUN/Creatinine Ratio 22 % 06/22/21 14:05 Glucose 115 mg/dL (65-100) H 06/22/21 14:05 Hemoglobin A1c < 4.0 % (4-6) L 06/22/21 14:05 Calcium 9.0 mg/dL (8.4-10.2) 06/22/21 14:05 Total Bilirubin 0.20 mg/dL (0.1-1.2) 06/22/21 14:05 AST 11 units/L (5-40) 06/22/21 14:05 ALT < 5 units/L (7-56) L 06/22/21 14:05 Alkaline Phosphatase 78 units/L (35-129) 06/22/21 14:05 Total Protein 6.3 g/dL (6.3-8.2) 06/22/21 14:05 Albumin 3.5 g/dL (3.9-5) L 06/22/21 14:05 Albumin/Globulin Ratio 1.3 % 06/22/21 14:05 Triglycerides 71 mg/dL (2-149) 06/22/21 14:05 Cholesterol 146 mg/dL (50-199) 06/22/21 14:05 LDL Cholesterol Direct 79 mg/dL (50-130) 06/22/21 14:05 HDL Cholesterol 55 mg/dL (40-59) 06/22/21 14:05 Cholesterol/HDL Ratio 2.65 % 06/22/21 14:05 TSH 0.730 mlU/mL (0.270-4.200) 06/22/21 14:05 Last Vital Signs Temp 98.5 F 06/24/21 19:29 Pulse 64 06/24/21 19:29 Resp 16 06/24/21 19:29 BP 121/63 06/24/21 19:29 Pulse Ox 99 06/24/21 19:29
[2021-06-25] MEDS: HALOPERIDOL 5 MG TAB PO SCH (21:46)
[2021-06-25] MEDS: traZODone 50 MG TAB PO SCH (21:46)
[2021-06-26] MEDS: DIVALPROEX SPRINKLE 125 MG CAP PO SCH ×3 (08:32→21:49)
--- NOTE | 2021-06-26 08:47 | Progress Note ---
Subjective Date of service: 06/26/21 Principal diagnosis: Schizophrenia Subjective Comment: 06/26/21: The patient was seen this morning. She continues to respond to internal stimuli which seems to be her baseline. " I'm waiting to speak with the telephonic nurse case manager about my living arrangement, 2-3 bedroom home." She denies any current suicidal/homicidal ideation and denies hallucinations. She is scheduled to receive Haldol 50mg IM CHO today. 06/25/21: The patient was seen at breakfast. She continues to be disorganized and hyperverbal. She is complaining about placement stating that someone lives at her house and that she wants to live by herself. She states she feels better. she denies any current suicidal/homicidal ideation and denies hallucinations. The patient is receptive to receiving Haldol Dec CHO. 06/24/21:The patient was seen today. She is psychotic. She is delusional, and heard talking to herself. Her mood is elevated. She says she wants to meet with me one on one for her "work out of how I'm being shifted." She says "I feel b milton and much in orbit." The patient then says "I feel defined, arranged and in the [place] spirit." Praise Good. She denies SI/HI. REVIEW OF SYSTEMS Constitutional: Negative for weight loss ENT: Negative for stridor Respiratory: Negative for cough or hemoptysis All other systems reviewed and are negative MENTAL STATUS EXAMINATION General Appearance and Behavior: Age appropriate, good hygiene, wearing appropriate clothes, fair eye contact, cooperative Cooperation: cooperative Mood: not good Affect and affective range: Incongruent with mood Thought Process: illogical Thought Content: hallucinations Speech: normal tone and pace Suicidal Ideation: Denies Homicidal Ideation: Denies Hallucinations: Auditory Delusions: Yes Impulse Control: Limited Insight and Judgment: Limited insight and judgment, Memory: Normal Attention: Normal Orientation: Alert, oriented x 2 Assessment and Plan (1) Schizophrenia Treatment Plan Patient admitted for inpatient psychiatric evaluation, medication adjustment and close monitoring The patient's behavior, mood, sleep and appetite will be closely monitored. Patient enrolled in individual and group therapeutic sessions and encouraged to attend. Patient provided with a safe and structured environment. Patient's physical health needs will be addressed by the Hospitalist. Hospitalist Consulted Labs including CBC, CMP, Lipid profile and Hemoglobin A1C levels ordered for baseline reference Social Assessment will be completed and the Dampproofer will work with patient and family to ensure a suitable and safe disposition Medication adjustment will be made as clinically indicated Continue Depakote 250mg po TID Start Haldol 5mg po BID Haldol DEC 50mg IM X1 Usual Wellness Holiness/Preservation: - Start Trazodone 50 mg po QHS & 50 mg po QHS PRN between 10 PM & 2 AM for insomnia - Start Melatonin 5 mg po QHS to promote circadian rhythm The patient agreed on the treatment plan, understood the risk, benefit, alternative treatment, potential consequence of no treatment, and gave informed consent. Estimated days: 6 Post hospital care: primary care provider, psychiatric provider Case staffed with Dr. Pat Medications and Allergies Medications and Allergies Allergies Allergy/AdvReac Type Severity Reaction Status Date / Time Penicillins Allergy Anaphylaxis Verified 06/21/21 16:48 Home Medications Medication Instructions Recorded Confirmed Last Taken Type Divalproex Sprinkle [DepaKOTE 125 mg PO BID 06/22/21 06/22/21 06/22/21 History SPRINKLE] OLANzapine [ZyPREXA] 5 mg PO QDAY 06/22/21 06/22/21 06/22/21 History Active Meds: Active Medications Divalproex Sodium (Divalproex Sprinkle 125 Mg Cap) 250 mg PO TID [facility] Last Admin: 06/26/21 08:32 Dose: 250 mg Haloperidol (Haloperidol 5 Mg Tab) 5 mg PO BID [facility] Last Admin: 06/25/21 21:46 Dose: 5 mg Haloperidol Decanoate (Haloperidol Decanoate 100 Mg/1 Ml Inj) 50 mg IM ONCE ONE Stop: 06/26/21 22:01 Trazodone HCl (Trazodone 50 Mg Tab) 50 mg PO QHS [facility] Last Admin: 06/25/21 21:46 Dose: 50 mg Results - Results Labs/Vitals: Laboratory Last Values WBC 3.9 K/mm3 (4.5-11.0) L 06/22/21 14:05 RBC 3.36 M/mm3 (3.65-5.03) L 06/22/21 14:05 Hgb 10.1 gm/dl (10.1-14.3) 06/22/21 14:05 Hct 29.9 % (30.3-42.9) L D 06/22/21 14:05 MCV 89 fl (79-97) 06/22/21 14:05 MCH 30 pg (28-32) 06/22/21 14:05 MCHC 34 % (30-34) 06/22/21 14:05 RDW 21.4 % (13.2-15.2) H 06/22/21 14:05 Plt Count 152 K/mm3 (140-440) 06/22/21 14:05 Lymph % (Auto) 44.8 % (13.4-35.0) H 06/22/21 14:05 [place] % (Auto) 12.8 % (0.0-7.3) H 06/22/21 14:05 Eos % (Auto) 1.8 % (0.0-4.3) 06/22/21 14:05 Baso % (Auto) 1.4 % (0.0-1.8) 06/22/21 14:05 Lymph # (Auto) 1.7 K/mm3 (1.2-5.4) 06/22/21 14:05 [place] # (Auto) 0.5 K/mm3 (0.0-0.8) 06/22/21 14:05 Eos # (Auto) 0.1 K/mm3 (0.0-0.4) 06/22/21 14:05 Baso # (Auto) 0.1 K/mm3 (0.0-0.1) 06/22/21 14:05 Seg Neutrophils % 39.2 % (40.0-70.0) L 06/22/21 14:05 Seg Neutrophils # 1.5 K/mm3 (1.8-7.7) L 06/22/21 14:05 Sodium 138 mmol/L (137-145) 06/22/21 14:05 Potassium 4.0 mmol/L (3.6-5.0) D 06/22/21 14:05 Chloride 104.2 mmol/L (98-107) 06/22/21 14:05 Carbon Dioxide 23 mmol/L (22-30) 06/22/21 14:05 Anion Gap 15 mmol/L 06/22/21 14:05 BUN 13 mg/dL (7-17) 06/22/21 14:05 Creatinine 0.6 mg/dL (0.6-1.2) 06/22/21 14:05 Estimated GFR > 60 ml/min 06/22/21 14:05 BUN/Creatinine Ratio 22 % 06/22/21 14:05 Glucose 115 mg/dL (65-100) H 06/22/21 14:05 Hemoglobin A1c < 4.0 % (4-6) L 06/22/21 14:05 Calcium 9.0 mg/dL (8.4-10.2) 06/22/21 14:05 Total Bilirubin 0.20 mg/dL (0.1-1.2) 06/22/21 14:05 AST 11 units/L (5-40) 06/22/21 14:05 ALT < 5 units/L (7-56) L 06/22/21 14:05 Alkaline Phosphatase 78 units/L (35-129) 06/22/21 14:05 Total Protein 6.3 g/dL (6.3-8.2) 06/22/21 14:05 Albumin 3.5 g/dL (3.9-5) L 06/22/21 14:05 Albumin/Globulin Ratio 1.3 % 06/22/21 14:05 Triglycerides 71 mg/dL (2-149) 06/22/21 14:05 Cholesterol 146 mg/dL (50-199) 06/22/21 14:05 LDL Cholesterol Direct 79 mg/dL (50-130) 06/22/21 14:05 HDL Cholesterol 55 mg/dL (40-59) 06/22/21 14:05 Cholesterol/HDL Ratio 2.65 % 06/22/21 14:05 TSH 0.730 mlU/mL (0.270-4.200) 06/22/21 14:05 Last Vital Signs Temp 98.7 F 06/25/21 19:32 Pulse 60 06/25/21 19:32 Resp 17 06/25/21 19:32 BP 105/54 06/25/21 19:32 Pulse Ox 99 06/25/21 19:32
[2021-06-26] MEDS: HALOPERIDOL 5 MG TAB PO SCH ×2 (09:33→21:50)
--- NOTE | 2021-06-26 21:02 | Progress Note ---
Assessment and Plan - Patient Problems (1) Schizophrenia Current Visit: Yes Status: Acute Qualifiers: Schizophrenia type: unspecified Qualified Code(s): F20.9 - Schizophrenia, unspecified Plan to address problem: continue medical management, supportive care. (2) Nicotine dependence Current Visit: Yes Status: Acute Qualifiers: Nicotine product type: cigarettes Substance use status: in withdrawal Qualified Code(s): F17.213 - Nicotine dependence, cigarettes, with withdrawal Plan to address problem: smoking cessation counseling, supportive care. (3) Advance care planning Current Visit: Yes Status: Acute Plan to address problem: disease education conducted, care plan discussed, diagnoses discussed, patient acknowledges understanding and agreement with care plan. +30 minutes. History Interval history: 50 YO Female with Schizophrenia, Nicotine Dependence admitted to [facility] for psychiatric stabilization. Patient seen and evaluated in the recreation room. No reported nursing events. Patient denies pain. Hospitalist Physical - Constitutional Vitals: Temp Pulse Resp BP Pulse Ox 97.3 F L 56 L 16 109/72 100 06/26/21 19:50 06/26/21 19:50 06/26/21 19:50 06/26/21 19:50 06/26/21 19:50 General appearance: Present: no acute distress - EENT Eyes: Present: PERRL ENT: hearing intact - Neck Neck: Present: supple - Respiratory Respiratory effort: normal Respiratory: bilateral: CTA - Cardiovascular Rhythm: regular Heart Sounds: Present: S1 & S2 - Extremities Extremities: no ischemia Peripheral Pulses: within normal limits - Abdominal General gastrointestinal: soft, non-tender, non-distended - Integumentary Integumentary: Present: clear, dry - Psychiatric Psychiatric: cooperative - Neurologic Neurologic: CNII-XII intact Results - Labs CBC & Chem 7: 06/22/21 14:05 06/22/21 14:05 Labs: Laboratory Last Values WBC 3.9 K/mm3 (4.5-11.0) L 06/22/21 14:05 RBC 3.36 M/mm3 (3.65-5.03) L 06/22/21 14:05 Hgb 10.1 gm/dl (10.1-14.3) 06/22/21 14:05 Hct 29.9 % (30.3-42.9) L D 06/22/21 14:05 MCV 89 fl (79-97) 06/22/21 14:05 MCH 30 pg (28-32) 06/22/21 14:05 MCHC 34 % (30-34) 06/22/21 14:05 RDW 21.4 % (13.2-15.2) H 06/22/21 14:05 Plt Count 152 K/mm3 (140-440) 06/22/21 14:05 Lymph % (Auto) 44.8 % (13.4-35.0) H 06/22/21 14:05 [place] % (Auto) 12.8 % (0.0-7.3) H 06/22/21 14:05 Eos % (Auto) 1.8 % (0.0-4.3) 06/22/21 14:05 Baso % (Auto) 1.4 % (0.0-1.8) 06/22/21 14:05 Lymph # (Auto) 1.7 K/mm3 (1.2-5.4) 06/22/21 14:05 [place] # (Auto) 0.5 K/mm3 (0.0-0.8) 06/22/21 14:05 Eos # (Auto) 0.1 K/mm3 (0.0-0.4) 06/22/21 14:05 Baso # (Auto) 0.1 K/mm3 (0.0-0.1) 06/22/21 14:05 Seg Neutrophils % 39.2 % (40.0-70.0) L 06/22/21 14:05 Seg Neutrophils # 1.5 K/mm3 (1.8-7.7) L 06/22/21 14:05 Sodium 138 mmol/L (137-145) 06/22/21 14:05 Potassium 4.0 mmol/L (3.6-5.0) D 06/22/21 14:05 Chloride 104.2 mmol/L (98-107) 06/22/21 14:05 Carbon Dioxide 23 mmol/L (22-30) 06/22/21 14:05 Anion Gap 15 mmol/L 06/22/21 14:05 BUN 13 mg/dL (7-17) 06/22/21 14:05 Creatinine 0.6 mg/dL (0.6-1.2) 06/22/21 14:05 Estimated GFR > 60 ml/min 06/22/21 14:05 BUN/Creatinine Ratio 22 % 06/22/21 14:05 Glucose 115 mg/dL (65-100) H 06/22/21 14:05 Hemoglobin A1c < 4.0 % (4-6) L 06/22/21 14:05 Calcium 9.0 mg/dL (8.4-10.2) 06/22/21 14:05 Total Bilirubin 0.20 mg/dL (0.1-1.2) 06/22/21 14:05 AST 11 units/L (5-40) 06/22/21 14:05 ALT < 5 units/L (7-56) L 06/22/21 14:05 Alkaline Phosphatase 78 units/L (35-129) 06/22/21 14:05 Total Protein 6.3 g/dL (6.3-8.2) 06/22/21 14:05 Albumin 3.5 g/dL (3.9-5) L 06/22/21 14:05 Albumin/Globulin Ratio 1.3 % 06/22/21 14:05 Triglycerides 71 mg/dL (2-149) 06/22/21 14:05 Cholesterol 146 mg/dL (50-199) 06/22/21 14:05 LDL Cholesterol Direct 79 mg/dL (50-130) 06/22/21 14:05 HDL Cholesterol 55 mg/dL (40-59) 06/22/21 14:05 Cholesterol/HDL Ratio 2.65 % 06/22/21 14:05 TSH 0.730 mlU/mL (0.270-4.200) 06/22/21 14:05 [place]/IV: Voiding Method Toilet Active Medications - Current Medications Current Medications: Generic Name Dose Route Start Last Admin Trade Name Freq PRN Reason Stop Dose Admin Divalproex Sodium 250 mg 06/24/21 14:00 06/26/21 13:36 Divalproex Sprinkle 125 Mg Cap PO 250 mg TID YAIMA Administration Haloperidol 5 mg 06/25/21 22:00 06/26/21 09:33 Haloperidol 5 Mg Tab PO 5 mg BID YAIMA Administration Haloperidol Decanoate 50 mg 06/26/21 22:00 Haloperidol Decanoate 100 Mg/1 Ml Inj IM 06/26/21 22:01 ONCE ONE Trazodone HCl 50 mg 06/23/21 22:00 06/25/21 21:46 Trazodone 50 Mg Tab PO 50 mg QHS YAIMA Administration
[2021-06-26] MEDS: traZODone 50 MG TAB PO SCH (21:49)
[2021-06-26] MEDS ORDERED: HALOPERIDOL DECANOATE 100 MG/1 ML INJ IM ONE (22:00)
--- NOTE | 2021-06-27 08:39 | Discharge Summary ---
Providers - Providers Date of Admission: 06/22/21 12:28 Date of discharge: 06/28/21 Attending physician: GUSTAVO NUÑEZ MD 06/22/21 11:26 Consult to Physician [CONS] Stat Comment: Consulting Provider: KEYLA KATHLEEN Physician Instructions: Reason For Exam: manage medical conditons Primary care physician: DAIJA PACE Hospitalization Reason for admission: Hallucinations Admitting Diagnosis: F20.9 - SCHIZOPHRENIA, UNSPECIFIED Hospital course: The patient was provided inpatient psychiatric treatment with safe and supportive environment, group/individual therapy, psychiatric medication, medication adjustment, adverse effect monitor, medical evaluation, medical treatment, social service assessment, social support meeting, placement assessment and psycho-education. The patients mood, cognition, behavior, motivation, compliance to treatment and appreciation on family/social support are improved and stabilized. At the time of discharge, the patient had no suicidal ideas, no homicidal ideas, no aggressive thoughts, no endangering behavior and no debilitating adverse effects. The patient agreed on the treatment plan, understood the risk, benefit, alternative treatment, potential consequence of no treatment, and gave informed consent. Progress Note: 06/26/21: The patient was seen this morning. She continues to respond to internal stimuli which seems to be her baseline. " I'm waiting to speak with the rifle case repairer about my living arrangement, 2-3 bedroom home." She denies any current suicidal/homicidal ideation and denies hallucinations. She is scheduled to receive Haldol 50mg IM CHO today. 06/25/21: The patient was seen at breakfast. She continues to be disorganized and hyperverbal. She is complaining about placement stating that someone lives at her house and that she wants to live by herself. She states she feels better. she denies any current suicidal/homicidal ideation and denies hallucinations. The patient is receptive to receiving Haldol Dec CHO. 06/24/21:The patient was seen today. She is psychotic. She is delusional, and heard talking to herself. Her mood is elevated. She says she wants to meet with me one on one for her "work out of how I'm being shifted." She says "I feel better and much in orbit." The patient then says "I feel defined, arranged and in the [place] spirit." Praise Good. She denies SI/HI. Disposition: 30 STILL A PATIENT Allergies/Adverse Reactions: Allergies Penicillins Allergy (Verified 06/21/21 16:48) Anaphylaxis Vital Signs: Last Vital Signs Temp 97.3 F L 06/26/21 19:50 Pulse 56 L 06/26/21 19:50 Resp 16 06/26/21 19:50 BP 109/72 06/26/21 19:50 Pulse Ox 100 06/26/21 19:50 Last Lab: Laboratory Last Values WBC 3.9 K/mm3 (4.5-11.0) L 06/22/21 14:05 RBC 3.36 M/mm3 (3.65-5.03) L 06/22/21 14:05 Hgb 10.1 gm/dl (10.1-14.3) 06/22/21 14:05 Hct 29.9 % (30.3-42.9) L D 06/22/21 14:05 MCV 89 fl (79-97) 06/22/21 14:05 MCH 30 pg (28-32) 06/22/21 14:05 MCHC 34 % (30-34) 06/22/21 14:05 RDW 21.4 % (13.2-15.2) H 06/22/21 14:05 Plt Count 152 K/mm3 (140-440) 06/22/21 14:05 Lymph % (Auto) 44.8 % (13.4-35.0) H 06/22/21 14:05 [place] % (Auto) 12.8 % (0.0-7.3) H 06/22/21 14:05 Eos % (Auto) 1.8 % (0.0-4.3) 06/22/21 14:05 Baso % (Auto) 1.4 % (0.0-1.8) 06/22/21 14:05 Lymph # (Auto) 1.7 K/mm3 (1.2-5.4) 06/22/21 14:05 [place] # (Auto) 0.5 K/mm3 (0.0-0.8) 06/22/21 14:05 Eos # (Auto) 0.1 K/mm3 (0.0-0.4) 06/22/21 14:05 Baso # (Auto) 0.1 K/mm3 (0.0-0.1) 06/22/21 14:05 Seg Neutrophils % 39.2 % (40.0-70.0) L 06/22/21 14:05 Seg Neutrophils # 1.5 K/mm3 (1.8-7.7) L 06/22/21 14:05 Sodium 138 mmol/L (137-145) 06/22/21 14:05 Potassium 4.0 mmol/L (3.6-5.0) D 06/22/21 14:05 Chloride 104.2 mmol/L (98-107) 06/22/21 14:05 Carbon Dioxide 23 mmol/L (22-30) 06/22/21 14:05 Anion Gap 15 mmol/L 06/22/21 14:05 BUN 13 mg/dL (7-17) 06/22/21 14:05 Creatinine 0.6 mg/dL (0.6-1.2) 06/22/21 14:05 Estimated GFR > 60 ml/min 06/22/21 14:05 BUN/Creatinine Ratio 22 % 06/22/21 14:05 Glucose 115 mg/dL (65-100) H 06/22/21 14:05 Hemoglobin A1c < 4.0 % (4-6) L 06/22/21 14:05 Calcium 9.0 mg/dL (8.4-10.2) 06/22/21 14:05 Total Bilirubin 0.20 mg/dL (0.1-1.2) 06/22/21 14:05 AST 11 units/L (5-40) 06/22/21 14:05 ALT < 5 units/L (7-56) L 06/22/21 14:05 Alkaline Phosphatase 78 units/L (35-129) 06/22/21 14:05 Total Protein 6.3 g/dL (6.3-8.2) 06/22/21 14:05 Albumin 3.5 g/dL (3.9-5) L 06/22/21 14:05 Albumin/Globulin Ratio 1.3 % 06/22/21 14:05 Triglycerides 71 mg/dL (2-149) 06/22/21 14:05 Cholesterol 146 mg/dL (50-199) 06/22/21 14:05 LDL Cholesterol Direct 79 mg/dL (50-130) 06/22/21 14:05 HDL Cholesterol 55 mg/dL (40-59) 06/22/21 14:05 Cholesterol/HDL Ratio 2.65 % 06/22/21 14:05 TSH 0.730 mlU/mL (0.270-4.200) 06/22/21 14:05 Core Measure Documentation - Palliative Care Palliative Care/ Comfort Measures: Not Applicable - Core Measures Any of the following diagnoses?: none - VTE Discharge Requirements Deep Vein Thrombosis/Pulmonary Embolism Present on Admission: No Exam - Constitutional Vitals: Temp Pulse Resp BP Pulse Ox 97.3 F L 56 L 16 109/72 100 06/26/21 19:50 06/26/21 19:50 06/26/21 19:50 06/26/21 19:50 06/26/21 19:50 Plan Activity: advance as tolerated Weight Bearing Status: Weight Bear as Tolerated Care Plan Goals: Maintain good and stable mental health. Plan of Treatment: The patient should be compliant with medications, not to use drugs and not to drink alcohol.The patient understands that if suicidal ideas, homicidal ideas, or any endangering thoughts/behavior arise, they should immediately seek for emergent assistance including but not limited to crisis hot line and emergency room. Follow up with outpatient Psychiatrist and PCP within 7 - 14 days of discharge. Patient received Haldol DEC 50mg on 06/27/21 to follow up. Follow up with: DAIJA PACE MD [Primary Care Provider] - 7 Days Prescriptions: traZODone [Desyrel] 50 mg PO QHS 30 Days #30 tablet Divalproex Sprinkle [Depakote Sprinkle] 250 mg PO TID 30 Days #90 capsule
--- NOTE | 2021-06-27 08:45 | Progress Note ---
Subjective Date of service: 06/27/21 Principal diagnosis: Schizophrenia Subjective Comment: 06/27/21: The patient was seen this morning. she states she is doing well " I fell stronger. " The patient denies any current suicidal/homicidal and denies hallucination " everything id quiet."Haldol 50mg IM CHO given today, no side effects noted. 06/26/21: The patient was seen this morning. She continues to respond to internal stimuli which seems to be her baseline. " I'm waiting to speak with the assistant case manager about my living arrangement, 2-3 bedroom home." She denies any current suicidal/homicidal ideation and denies hallucinations. She is scheduled to receive Haldol 50mg IM CHO today. 06/25/21: The patient was seen at breakfast. She continues to be disorganized and hyperverbal. She is complaining about placement stating that someone lives at her house and that she wants to live by herself. She states she feels better. she denies any current suicidal/homicidal ideation and denies hallucinations. The patient is receptive to receiving Haldol Dec CHO. 06/24/21:The patient was seen today. She is psychotic. She is delusional, and heard talking to herself. Her mood is elevated. She says she wants to meet with me one on one for her "work out of how I'm being shifted." She says "I feel better and much in orbit." The patient then says "I feel defined, arranged and in the [place] spirit." Praise Good. She denies SI/HI. REVIEW OF SYSTEMS Constitutional: Negative for weight loss ENT: Negative for stridor Respiratory: Negative for cough or hemoptysis All other systems reviewed and are negative MENTAL STATUS EXAMINATION General Appearance and Behavior: Age appropriate, good hygiene, wearing appropriate clothes, fair eye contact, cooperative Cooperation: cooperative Mood: good Affect and affective range: congruent with mood Thought Process: Goal directed Thought Content: Hallucinations Speech: normal tone and pace Suicidal Ideation: Denies Homicidal Ideation: Denies Hallucinations:Yes Delusions: None Impulse Control: Limited Insight and Judgment: Limited insight and judgment, Memory: Normal Attention: Normal Orientation: Alert, oriented x 2 Assessment and Plan (1) Schizophrenia Treatment Plan Patient admitted for inpatient psychiatric evaluation, medication adjustment and close monitoring The patient's behavior, mood, sleep and appetite will be closely monitored. Patient enrolled in individual and group therapeutic sessions and encouraged to attend. Patient provided with a safe and structured environment. Patient's physical health needs will be addressed by the Hospitalist. Hospitalist Consulted Labs including CBC, CMP, Lipid profile and Hemoglobin A1C levels ordered for baseline reference Social Assessment will be completed and the Taxi Servicer will work with patient and family to ensure a suitable and safe disposition Medication adjustment will be made as clinically indicated Continue Depakote 250mg po TID Usual Wellness Worship/Preservation: - Start Trazodone 50 mg po QHS & 50 mg po QHS PRN between 10 PM & 2 AM for insomnia - Start Melatonin 5 mg po QHS to promote circadian rhythm The patient agreed on the treatment plan, understood the risk, benefit, alternative treatment, potential consequence of no treatment, and gave informed consent. Estimated days:5 Post hospital care: primary care provider, psychiatric provider Case staffed with Dr. Pat Medications and Allergies Medications and Allergies Allergies Allergy/AdvReac Type Severity Reaction Status Date / Time Penicillins Allergy Anaphylaxis Verified 06/21/21 16:48 Home Medications Medication Instructions Recorded Confirmed Last Taken Type Divalproex Sprinkle [DepaKOTE 125 mg PO BID 06/22/21 06/22/21 06/22/21 History SPRINKLE] Divalproex Sprinkle [Depakote 250 mg PO TID 30 Days #90 capsule 06/27/21 Unknown Rx Sprinkle] traZODone [Desyrel] 50 mg PO QHS 30 Days #30 tablet 06/27/21 Unknown Rx Active Meds: Active Medications Divalproex Sodium (Divalproex Sprinkle 125 Mg Cap) 250 mg PO TID [facility] Last Admin: 06/26/21 21:49 Dose: 250 mg Haloperidol (Haloperidol 5 Mg Tab) 5 mg PO BID [facility] Last Admin: 06/26/21 21:50 Dose: 5 mg Trazodone HCl (Trazodone 50 Mg Tab) 50 mg PO QHS [facility] Last Admin: 06/26/21 21:49 Dose: 50 mg Results - Results Labs/Vitals: Laboratory Last Values WBC 3.9 K/mm3 (4.5-11.0) L 06/22/21 14:05 RBC 3.36 M/mm3 (3.65-5.03) L 06/22/21 14:05 Hgb 10.1 gm/dl (10.1-14.3) 06/22/21 14:05 Hct 29.9 % (30.3-42.9) L D 06/22/21 14:05 MCV 89 fl (79-97) 06/22/21 14:05 MCH 30 pg (28-32) 06/22/21 14:05 MCHC 34 % (30-34) 06/22/21 14:05 RDW 21.4 % (13.2-15.2) H 06/22/21 14:05 Plt Count 152 K/mm3 (140-440) 06/22/21 14:05 Lymph % (Auto) 44.8 % (13.4-35.0) H 06/22/21 14:05 [place] % (Auto) 12.8 % (0.0-7.3) H 06/22/21 14:05 Eos % (Auto) 1.8 % (0.0-4.3) 06/22/21 14:05 Baso % (Auto) 1.4 % (0.0-1.8) 06/22/21 14:05 Lymph # (Auto) 1.7 K/mm3 (1.2-5.4) 06/22/21 14:05 [place] # (Auto) 0.5 K/mm3 (0.0-0.8) 06/22/21 14:05 Eos # (Auto) 0.1 K/mm3 (0.0-0.4) 06/22/21 14:05 Baso # (Auto) 0.1 K/mm3 (0.0-0.1) 06/22/21 14:05 Seg Neutrophils % 39.2 % (40.0-70.0) L 06/22/21 14:05 Seg Neutrophils # 1.5 K/mm3 (1.8-7.7) L 06/22/21 14:05 Sodium 138 mmol/L (137-145) 06/22/21 14:05 Potassium 4.0 mmol/L (3.6-5.0) D 06/22/21 14:05 Chloride 104.2 mmol/L (98-107) 06/22/21 14:05 Carbon Dioxide 23 mmol/L (22-30) 06/22/21 14:05 Anion Gap 15 mmol/L 06/22/21 14:05 BUN 13 mg/dL (7-17) 06/22/21 14:05 Creatinine 0.6 mg/dL (0.6-1.2) 06/22/21 14:05 Estimated GFR > 60 ml/min 06/22/21 14:05 BUN/Creatinine Ratio 22 % 06/22/21 14:05 Glucose 115 mg/dL (65-100) H 06/22/21 14:05 Hemoglobin A1c < 4.0 % (4-6) L 06/22/21 14:05 Calcium 9.0 mg/dL (8.4-10.2) 06/22/21 14:05 Total Bilirubin 0.20 mg/dL (0.1-1.2) 06/22/21 14:05 AST 11 units/L (5-40) 06/22/21 14:05 ALT < 5 units/L (7-56) L 06/22/21 14:05 Alkaline Phosphatase 78 units/L (35-129) 06/22/21 14:05 Total Protein 6.3 g/dL (6.3-8.2) 06/22/21 14:05 Albumin 3.5 g/dL (3.9-5) L 06/22/21 14:05 Albumin/Globulin Ratio 1.3 % 06/22/21 14:05 Triglycerides 71 mg/dL (2-149) 06/22/21 14:05 Cholesterol 146 mg/dL (50-199) 06/22/21 14:05 LDL Cholesterol Direct 79 mg/dL (50-130) 06/22/21 14:05 HDL Cholesterol 55 mg/dL (40-59) 06/22/21 14:05 Cholesterol/HDL Ratio 2.65 % 06/22/21 14:05 TSH 0.730 mlU/mL (0.270-4.200) 06/22/21 14:05 Last Vital Signs Temp 97.3 F L 06/26/21 19:50 Pulse 56 L 06/26/21 19:50 Resp 16 06/26/21 19:50 BP 109/72 06/26/21 19:50 Pulse Ox 100 06/26/21 19:50
[2021-06-27] MEDS: DIVALPROEX SPRINKLE 125 MG CAP PO SCH ×3 (09:50→20:09)
--- NOTE | 2021-06-27 15:02 | Progress Note ---
Assessment and Plan - Patient Problems (1) Schizophrenia Current Visit: Yes Status: Acute Qualifiers: Schizophrenia type: unspecified Qualified Code(s): F20.9 - Schizophrenia, unspecified Plan to address problem: continue medical management, supportive care. (2) Nicotine dependence Current Visit: Yes Status: Acute Qualifiers: Nicotine product type: cigarettes Substance use status: in withdrawal Qualified Code(s): F17.213 - Nicotine dependence, cigarettes, with withdrawal Plan to address problem: smoking cessation counseling, supportive care. (3) Advance care planning Current Visit: Yes Status: Acute Plan to address problem: disease education conducted, care plan discussed, diagnoses discussed, patient acknowledges understanding and agreement with care plan. +30 minutes. History Interval history: 50 YO Female with Schizophrenia, Nicotine Dependence admitted to [facility] for psychiatric stabilization. Patient seen and evaluated in the recreation room. No reported nursing events. Patient denies pain. Hospitalist Physical - Constitutional Vitals: Temp Pulse Resp BP Pulse Ox 97.3 F L 56 L 16 109/72 100 06/26/21 19:50 06/26/21 19:50 06/26/21 19:50 06/26/21 19:50 06/26/21 19:50 General appearance: Present: no acute distress - EENT Eyes: Present: PERRL, EOM intact - Neck Neck: Present: supple - Respiratory Respiratory effort: normal Respiratory: bilateral: CTA - Cardiovascular Rhythm: regular Heart Sounds: Present: S1 & S2 - Extremities Extremities: no ischemia Peripheral Pulses: within normal limits - Abdominal General gastrointestinal: soft, non-tender, non-distended - Integumentary Integumentary: Present: clear, dry - Psychiatric Psychiatric: cooperative - Neurologic Neurologic: CNII-XII intact Results - Labs CBC & Chem 7: 06/22/21 14:05 06/22/21 14:05 Labs: Laboratory Last Values WBC 3.9 K/mm3 (4.5-11.0) L 06/22/21 14:05 RBC 3.36 M/mm3 (3.65-5.03) L 06/22/21 14:05 Hgb 10.1 gm/dl (10.1-14.3) 06/22/21 14:05 Hct 29.9 % (30.3-42.9) L D 06/22/21 14:05 MCV 89 fl (79-97) 06/22/21 14:05 MCH 30 pg (28-32) 06/22/21 14:05 MCHC 34 % (30-34) 06/22/21 14:05 RDW 21.4 % (13.2-15.2) H 06/22/21 14:05 Plt Count 152 K/mm3 (140-440) 06/22/21 14:05 Lymph % (Auto) 44.8 % (13.4-35.0) H 06/22/21 14:05 Terrell % (Auto) 12.8 % (0.0-7.3) H 06/22/21 14:05 Eos % (Auto) 1.8 % (0.0-4.3) 06/22/21 14:05 Baso % (Auto) 1.4 % (0.0-1.8) 06/22/21 14:05 Lymph # (Auto) 1.7 K/mm3 (1.2-5.4) 06/22/21 14:05 Terrell # (Auto) 0.5 K/mm3 (0.0-0.8) 06/22/21 14:05 Eos # (Auto) 0.1 K/mm3 (0.0-0.4) 06/22/21 14:05 Baso # (Auto) 0.1 K/mm3 (0.0-0.1) 06/22/21 14:05 Seg Neutrophils % 39.2 % (40.0-70.0) L 06/22/21 14:05 Seg Neutrophils # 1.5 K/mm3 (1.8-7.7) L 06/22/21 14:05 Sodium 138 mmol/L (137-145) 06/22/21 14:05 Potassium 4.0 mmol/L (3.6-5.0) D 06/22/21 14:05 Chloride 104.2 mmol/L (98-107) 06/22/21 14:05 Carbon Dioxide 23 mmol/L (22-30) 06/22/21 14:05 Anion Gap 15 mmol/L 06/22/21 14:05 BUN 13 mg/dL (7-17) 06/22/21 14:05 Creatinine 0.6 mg/dL (0.6-1.2) 06/22/21 14:05 Estimated GFR > 60 ml/min 06/22/21 14:05 BUN/Creatinine Ratio 22 % 06/22/21 14:05 Glucose 115 mg/dL (65-100) H 06/22/21 14:05 Hemoglobin A1c < 4.0 % (4-6) L 06/22/21 14:05 Calcium 9.0 mg/dL (8.4-10.2) 06/22/21 14:05 Total Bilirubin 0.20 mg/dL (0.1-1.2) 06/22/21 14:05 AST 11 units/L (5-40) 06/22/21 14:05 ALT < 5 units/L (7-56) L 06/22/21 14:05 Alkaline Phosphatase 78 units/L (35-129) 06/22/21 14:05 Total Protein 6.3 g/dL (6.3-8.2) 06/22/21 14:05 Albumin 3.5 g/dL (3.9-5) L 06/22/21 14:05 Albumin/Globulin Ratio 1.3 % 06/22/21 14:05 Triglycerides 71 mg/dL (2-149) 06/22/21 14:05 Cholesterol 146 mg/dL (50-199) 06/22/21 14:05 LDL Cholesterol Direct 79 mg/dL (50-130) 06/22/21 14:05 HDL Cholesterol 55 mg/dL (40-59) 06/22/21 14:05 Cholesterol/HDL Ratio 2.65 % 06/22/21 14:05 TSH 0.730 mlU/mL (0.270-4.200) 06/22/21 14:05 Alicea/IV: Voiding Method Toilet Active Medications - Current Medications Current Medications: Generic Name Dose Route Start Last Admin Trade Name Freq PRN Reason Stop Dose Admin Divalproex Sodium 250 mg 06/24/21 14:00 06/27/21 14:11 Divalproex Sprinkle 125 Mg Cap PO 250 mg TID YAIMA Administration Trazodone HCl 50 mg 06/23/21 22:00 06/26/21 21:49 Trazodone 50 Mg Tab PO 50 mg QHS YAIMA Administration
[2021-06-27] MEDS: traZODone 50 MG TAB PO SCH (21:20)
[2021-06-28 06:41] VITALS: BP 133/72
== END 2021-06-28 05:40 | disposition home or self-care (01) | DRG 885 ==
LOC: 3A 11:01 → UNDOADMIN 11:01 → 5A 12:28
PROVIDERS: ADMIT Psychiatry & Neurology Psychiatry; ATTEND Psychiatry & Neurology Psychiatry
DX: F20.9 Schizophrenia, unspecified (principal); F17.213 Nicotine dependence, cigarettes, with withdrawal
CPT/HCPCS: 36415; 80053; 80061; 80164; 80307; 80320; 81001; 83036; 84443; 85025; 85027; 99285; G0378; G0480; J1631; U0003

== ENCOUNTER 2021-07-24 22:52 | Emergency (ER) | payer MEDICAID ==
[2021-07-25 00:01] LABS: Bacteria,Urine 1+ /HPF (Negative); Bilirubin,Urine NEG (Negative); Blood,Urine SM (Negative); Color,Urine Colorless (Yellow); Protein,Urine <15 mg/dL mg/dL (Negative); Urobilinogen,Urine < 2.0 mg/dL (<2.0); WBC,Urine < 1.0 /HPF (0.0-6.0)
[2021-07-25 00:05] LABS: Amphetamine Screen,Urine PRESUMPTIVE NEGATIVE; Benzodiazepines Screen,Urine PRESUMPTIVE NEGATIVE; Cannabinoid Screen,Urine PRESUMPTIVE NEGATIVE; Cocaine Screen,Urine PRESUMPTIVE NEGATIVE; Methadone Screen,Urine PRESUMPTIVE NEGATIVE; Opiate Screen,Urine PRESUMPTIVE NEGATIVE
[2021-07-25 00:26] LABS: Basophils # (Auto) 0.1 K/mm3 (0.0-0.1); Basophils % (Auto) 0.7 % (0.0-1.8); Eosinophils # (Auto) 0.1 K/mm3 (0.0-0.4); Eosinophils % (Auto) 1.5 % (0.0-4.3); Hemoglobin 11.7 gm/dl (10.1-14.3); Lymphocytes # (Auto) 2.4 K/mm3 (1.2-5.4); Lymphocytes % (Auto) 34.3 % (13.4-35.0); Mean Corpuscular HGB Conc 33 % (30-34); Mean Corpuscular Volume 90 fl (79-97); Monocytes # (Auto) 0.7 K/mm3 (0.0-0.8); Monocytes % (Auto) 9.8 % (0.0-7.3); Platelet Count 153 K/mm3 (140-440); Red Blood Count 3.99 M/mm3 (3.65-5.03)
[2021-07-25 00:27] LABS: Red Cell Distribution Width 20.5 % (13.2-15.2)
[2021-07-25 00:34] LABS: Blood Urea Nitrogen 5 mg/dL (7-17); Calcium 9.3 mg/dL (8.4-10.2); Hemolysis Index 8
[2021-07-25 00:56] LABS: BUN/Creatinine Ratio 8
--- NOTE | 2021-07-25 03:04 | Emergency Department Report ---
ED Psych HPI - General Chief Complaint: Psych Stated Complaint: MENTAL HEALTH CONCERNS Time Seen by Provider: 07/25/21 02:53 Source: patient Mode of arrival: Ambulatory - History of Present Illness Initial Comments: 50 yo F who present with wanted help because she believed she is having nervous break down. She says she is about to lose her house. No suicide or homicidal ideation reported. No other modifying or associated factor noted. - Related Data Home Medications Medication Instructions Recorded Confirmed Last Taken Divalproex Sprinkle [DepaKOTE 125 mg PO BID 06/22/21 06/22/21 06/22/21 SPRINKLE] Previous Rx's Medication Instructions Recorded Last Taken Type Divalproex Sprinkle [Depakote 250 mg PO TID 30 Days #90 capsule 06/27/21 Unknown Rx Sprinkle] traZODone [Desyrel] 50 mg PO QHS 30 Days #30 tablet 06/27/21 Unknown Rx Allergies Allergy/AdvReac Type Severity Reaction Status Date / Time Penicillins Allergy Mild Anaphylaxis Verified 07/25/21 02:52 ED Review of Systems ROS: Stated complaint: MENTAL HEALTH CONCERNS Other details as noted in HPI Comment: All other systems reviewed and negative Psychiatric: anxiety ED Past Medical Hx - Past Medical History Hx Congestive Heart Failure: No Hx Diabetes: No Hx Renal Disease: No Hx Arthritis: No Hx Seizures: No Hx Psychiatric Treatment: Yes Hx COPD: No Hx Dementia: No - Surgical History Hx Cholecystectomy: No Hx Appendectomy: No - Social History Smoking Status: Light Tobacco Smoker Substance Use Type: Alcohol - Medications Home Medications: Home Medications Medication Instructions Recorded Confirmed Last Taken Type Divalproex Sprinkle [DepaKOTE 125 mg PO BID 06/22/21 06/22/21 06/22/21 History SPRINKLE] Divalproex Sprinkle [Depakote 250 mg PO TID 30 Days #90 capsule 06/27/21 Unknown Rx Sprinkle] traZODone [Desyrel] 50 mg PO QHS 30 Days #30 tablet 06/27/21 Unknown Rx ED Physical Exam - General Limitations: No Limitations General appearance: alert, in no apparent distress, anxious - Head Head exam: Present: normal inspection - Eye Eye exam: Present: normal appearance Pupils: Present: normal accommodation - ENT ENT exam: Present: normal exam, normal orophraynx, mucous membranes moist - Neck Neck exam: Present: normal inspection - Respiratory Respiratory exam: Present: normal lung sounds bilaterally, respiratory distress - Cardiovascular Cardiovascular Exam: Present: regular rate, normal rhythm, normal heart sounds - GI/Abdominal GI/Abdominal exam: Present: soft, normal bowel sounds. Absent: distended, tenderness - Extremities Exam Extremities exam: Present: normal inspection - Back Exam Back exam: Present: normal inspection. Absent: tenderness - Neurological Exam Neurological exam: Present: alert, oriented X3 - Skin Skin exam: Present: warm, normal color ED Course Vital Signs 07/24/21 07/25/21 07/25/21 23:19 02:53 08:16 Temperature 97.8 F 97.7 F Pulse Rate 79 72 Respiratory 18 18 Rate Blood Pressure 151/80 Blood Pressure 145/73 [Left] O2 Sat by Pulse 100 98 99 Oximetry 07/25/21 07/26/21 20:21 02:43 Temperature 98.8 F 98.2 F Pulse Rate 68 63 Respiratory 16 16 Rate Blood Pressure Blood Pressure 127/69 136/89 [Left] O2 Sat by Pulse 99 97 Oximetry - Reevaluation(s) Reevaluation #1: 07/25/21 03:03 here with anxiety -- and denies any SI or HI -- will order routine psych workup for clearance-- ED Medical Decision Making - Lab Data Result diagrams: 07/24/21 23:53 07/24/21 23:53 Critical care attestation.: If time is entered above; I have spent that time in minutes in the direct care of this critically ill patient, excluding procedure time. ED Disposition Clinical Impression: Anxiety, Encounter for medical clearance for patient hold Disposition: 30 STILL A PATIENT Is pt being admited?: No Does the pt Need Aspirin: No Condition: Stable Referrals: DAIJA PACE MD [Primary Care Provider] - 3-5 Days
--- NOTE | 2021-07-25 09:06 | Consultation ---
History of Present Illness - Reason for Consult Consult date: 07/25/21 Reason for consult: mental health evaluation - History of Present Psychiatric Illness The patient is a 50 year old female with history of schizophrenia. The patient was seen this morning. She is calm, alert and oriented x 2. The patient reports that she is doing well. She states that she is homeless. She denies any current suicidal/homicidal ideation and denies hallucinations. PAST PSYCHIATRIC HISTORY Diagnoses: schizophrenia Suicide attempts or Self-harm behavior: Denies Prior psychiatric hospitalizations: yes Substance Abuse history: Denies Previous psychiatric medications tried: trazodone Outpatient treatment: Yes PAST MEDICAL HISTORY: unknown Family Psychiatric History: unknown SOCIAL HISTORY Marital Status: Single Living Arrangements: homeless Employment Status: Disabled Access to guns/weapons: None reported Education: History of Abuse: None reported Legal History: None reported REVIEW OF SYSTEMS Constitutional: Negative for weight loss ENT: Negative for stridor Respiratory: Negative for cough or hemoptysis All other systems reviewed and are negative MENTAL STATUS EXAMINATION General Appearance and Behavior: Age appropriate, good hygiene, wearing appropriate clothes, fair eye contact, cooperative Cooperation: cooperative Mood: "ok" Affect and affective range: Incongruent with mood Thought Process:Goal directed Thought Content: Reality oriented Speech: normal tone and pace Suicidal Ideation: Denies Homicidal Ideation: Denies Hallucinations:Denies Delusions: None Impulse Control: Limited Insight and Judgment: Limited insight and judgment, Memory: Normal Attention: Normal Orientation: Alert, oriented Assessment and Plan (1) Hx of Schizophrenia Treatment Plan Case management Haldol Dec 50mg IM Inj Sitter: refer to medical Medical: per primary Disposition:Do not recommend acute psychiatric inpatient treatment. Casting Inspector will provide patient with outpatient resources. Will sign off. Thanks Case staffed with Dr. Pat Medications and Allergies Allergies Allergy/AdvReac Type Severity Reaction Status Date / Time Penicillins Allergy Mild Anaphylaxis Verified 07/25/21 02:52 Home Medications Medication Instructions Recorded Confirmed Last Taken Type Divalproex Sprinkle [DepaKOTE 125 mg PO BID 06/22/21 06/22/21 06/22/21 History SPRINKLE] Divalproex Sprinkle [Depakote 250 mg PO TID 30 Days #90 capsule 06/27/21 Unknown Rx Sprinkle] traZODone [Desyrel] 50 mg PO QHS 30 Days #30 tablet 06/27/21 Unknown Rx Mental Status Exam - Vital signs Last Vital Signs Temp 97.7 F 07/25/21 08:16 Pulse 72 07/25/21 08:16 Resp 18 07/25/21 08:16 BP 145/73 07/25/21 08:16 Pulse Ox 99 07/25/21 08:16 Results Result Diagrams: 07/24/21 23:53 07/24/21 23:53 Abnormal lab results 07/24/21 07/24/21 07/24/21 Range/Units 23:53 23:53 23:53 RDW 20.5 H (13.2-15.2) % Eddy % (Auto) 9.8 H (0.0-7.3) % Potassium 3.1 L (3.6-5.0) mmol/L BUN 5 L (7-17) mg/dL Ur Specific Bryan (1.003-1.030) Acetaminophen 5.0 L (10.0-30.0) ug/mL 07/24/21 Range/Units Unknown RDW (13.2-15.2) % Eddy % (Auto) (0.0-7.3) % Potassium (3.6-5.0) mmol/L BUN (7-17) mg/dL Ur Specific Bryan 1.000 L (1.003-1.030) Acetaminophen (10.0-30.0) ug/mL All other labs normal.
[2021-07-25] MEDS ORDERED: HALOPERIDOL DECANOATE 100 MG/1 ML INJ IM ONE (09:09)
[2021-07-25] MEDS ORDERED: LORazepam 2 MG/ML VIAL IM PRN (12:21)
[2021-07-25] MEDS ORDERED: HALOPERIDOL LACTATE 5 MG/1 ML INJ IM PRN (12:21)
[2021-07-25] MEDS ORDERED: POTASSIUM CHLORIDE ER 20 MEQ TAB PO ONE ×2 (12:21→19:00)
--- NOTE | 2021-07-25 12:25 | Event Note ---
Date: 07/25/21 The patient is seen and examined. Nursing team reports no acute issues this morning or overnight. Nursing team reports stable and unremarkable vital signs. The psychiatry team have initially cleared this patient. They recommended a case management evaluation for unclear reasons. I went back to evaluate the patient. She told me that she expects transportation to be arranged to go back to her current residence. I informed the patient that she would be given a bus pass, and asked her if she knew how to operate the bus system. The patient then stated that she was going to use her money for an admission. The patient then started to yell and scream, and did not respond to verbal de-escalation techniques or show of force as per verbal report from the nursing team. I have also evaluated this patient's laboratory studies. Her potassium was not repleted. A Depakote level was never sent, and salicylate level is still pending. I have called up the lab, and asked them to add these laboratory studies on. I have also requested a repeat psychiatric consultation/evaluation, as the patient is now yelling and screaming and quite belligerent. A sammy olson is now called overhead, and I have ordered as needed Ativan and haloperidol Vital Signs 07/24/21 07/25/21 07/25/21 23:19 02:53 08:16 Temperature 97.8 F 97.7 F Pulse Rate 79 72 Respiratory 18 18 Rate Blood Pressure 151/80 Blood Pressure 145/73 [Left] O2 Sat by Pulse 100 98 99 Oximetry Lab Results 07/24/21 07/24/21 07/24/21 Range/Units 23:53 23:53 23:53 WBC (4.5-11.0) K/mm3 RBC (3.65-5.03) M/mm3 Hgb (10.1-14.3) gm/dl Hct (30.3-42.9) % MCV (79-97) fl MCH (28-32) pg MCHC (30-34) % RDW (13.2-15.2) % Plt Count (140-440) K/mm3 Lymph % (Auto) (13.4-35.0) % Giles % (Auto) (0.0-7.3) % Eos % (Auto) (0.0-4.3) % Baso % (Auto) (0.0-1.8) % Lymph # (Auto) (1.2-5.4) K/mm3 Giles # (Auto) (0.0-0.8) K/mm3 Eos # (Auto) (0.0-0.4) K/mm3 Baso # (Auto) (0.0-0.1) K/mm3 Seg Neutrophils % (40.0-70.0) % Seg Neutrophils # (1.8-7.7) K/mm3 Sodium 140 (137-145) mmol/L Potassium 3.1 L (3.6-5.0) mmol/L Chloride 102.8 (98-107) mmol/L Carbon Dioxide 22 (22-30) mmol/L Anion Gap 18 mmol/L BUN 5 L (7-17) mg/dL Creatinine 0.6 (0.6-1.2) mg/dL Estimated GFR > 60 ml/min BUN/Creatinine Ratio 8 % Glucose 100 (65-100) mg/dL Calcium 9.3 (8.4-10.2) mg/dL Urine Color (Yellow) Urine Turbidity (Clear) Urine pH (5.0-7.0) Ur Specific Rogerson (1.003-1.030) Urine Protein (Negative) mg/dL Urine Glucose (UA) (Negative) mg/dL Urine Ketones (Negative) mg/dL Urine Blood (Negative) Urine Nitrite (Negative) Urine Bilirubin (Negative) Urine Urobilinogen (<2.0) mg/dL Ur Leukocyte Esterase (Negative) Urine WBC (Auto) (0.0-6.0) /HPF Urine RBC (Auto) (0.0-6.0) /HPF U Epithel Cells (Auto) (0-13.0) /HPF Urine Bacteria (Auto) (Negative) /HPF Urine Opiates Screen Urine Methadone Screen Acetaminophen 5.0 L (10.0-30.0) ug/mL Ur Barbiturates Screen Ur Phencyclidine Scrn Ur Amphetamines Screen U Benzodiazepines Scrn Urine Cocaine Screen U Marijuana (THC) Screen Drugs of Abuse Note Plasma/Serum Alcohol < 0.01 (0-0.07) % 07/24/21 07/24/21 07/24/21 Range/Units 23:53 Unknown Unknown WBC 7.0 (4.5-11.0) K/mm3 RBC 3.99 (3.65-5.03) M/mm3 Hgb 11.7 (10.1-14.3) gm/dl Hct 36.0 (30.3-42.9) % MCV 90 (79-97) fl MCH 29 (28-32) pg MCHC 33 (30-34) % RDW 20.5 H (13.2-15.2) % Plt Count 153 (140-440) K/mm3 Lymph % (Auto) 34.3 (13.4-35.0) % Giles % (Auto) 9.8 H (0.0-7.3) % Eos % (Auto) 1.5 (0.0-4.3) % Baso % (Auto) 0.7 (0.0-1.8) % Lymph # (Auto) 2.4 (1.2-5.4) K/mm3 Giles # (Auto) 0.7 (0.0-0.8) K/mm3 Eos # (Auto) 0.1 (0.0-0.4) K/mm3 Baso # (Auto) 0.1 (0.0-0.1) K/mm3 Seg Neutrophils % 53.7 (40.0-70.0) % Seg Neutrophils # 3.8 (1.8-7.7) K/mm3 Sodium (137-145) mmol/L Potassium (3.6-5.0) mmol/L Chloride (98-107) mmol/L Carbon Dioxide (22-30) mmol/L Anion Gap mmol/L BUN (7-17) mg/dL Creatinine (0.6-1.2) mg/dL Estimated GFR ml/min BUN/Creatinine Ratio % Glucose (65-100) mg/dL Calcium (8.4-10.2) mg/dL Urine Color Colorless (Yellow) Urine Turbidity Clear (Clear) Urine pH 6.0 (5.0-7.0) Ur Specific Rogerson 1.000 L (1.003-1.030) Urine Protein <15 mg/dl (Negative) mg/dL Urine Glucose (UA) Neg (Negative) mg/dL Urine Ketones Neg (Negative) mg/dL Urine Blood Sm (Negative) Urine Nitrite Neg (Negative) Urine Bilirubin Neg (Negative) Urine Urobilinogen < 2.0 (<2.0) mg/dL Ur Leukocyte Esterase Neg (Negative) Urine WBC (Auto) < 1.0 (0.0-6.0) /HPF Urine RBC (Auto) 0.0 (0.0-6.0) /HPF U Epithel Cells (Auto) < 1.0 (0-13.0) /HPF Urine Bacteria (Auto) 1+ (Negative) /HPF Urine Opiates Screen Presumptive negative Urine Methadone Screen Presumptive negative Acetaminophen (10.0-30.0) ug/mL Ur Barbiturates Screen Presumptive negative Ur Phencyclidine Scrn Presumptive negative Ur Amphetamines Screen Presumptive negative U Benzodiazepines Scrn Presumptive negative Urine Cocaine Screen Presumptive negative U Marijuana (THC) Screen Presumptive negative Drugs of Abuse Note Disclamer Plasma/Serum Alcohol (0-0.07) % Patient ultimately required placement in room 14 as seclusion. [id number] evaluation performed. Patient is awake, breathing spontaneously protecting her airway and moving 4 extremities
[2021-07-26] MEDS ORDERED: POTASSIUM CHLORIDE ER 20 MEQ TAB PO SCH (10:00)
--- NOTE | 2021-07-26 11:00 | Progress Note ---
Subjective - Reason for Consult Consult date: 07/26/21 Reason for consult: hallucinations - Chief Complaint Chief complaint: The patient was seen this morning. She is threatening suicide if she does not get placed. She presents with disorganized thinking. REVIEW OF SYSTEMS Constitutional: Negative for weight loss ENT: Negative for stridor Respiratory: Negative for cough or hemoptysis All other systems reviewed and are negative MENTAL STATUS EXAMINATION General Appearance and Behavior: Age appropriate, good hygiene, wearing appropriate clothes, fair eye contact, cooperative Cooperation: cooperative Mood: angry Affect and affective range:congruent with mood Thought Process:circumstantial Thought Content: Disorganized Speech: normal tone and pace Suicidal Ideation: Yes Homicidal Ideation: Denies Hallucinations:Yes Delusions: None Impulse Control: Limited Insight and Judgment: Limited insight and judgment, Memory: Normal Attention: Normal Orientation: Alert, oriented Assessment and Plan (1) Schizophrenia Trazodone 50mg po QHS Sitter: refer to medical Medical: per primary Disposition: Recommend acute psychiatric inpatient treatment. Will follow. Thanks Case staffed with Dr. Pat Medications and Allergies Mental Status Exam - Vital signs Last Vital Signs Temp 98.2 F 07/26/21 02:43 Pulse 63 07/26/21 02:43 Resp 16 07/26/21 02:43 BP 136/89 07/26/21 02:43 Pulse Ox 97 07/26/21 02:43
--- NOTE | 2021-07-26 12:18 | Emergency Department Report ---
Blank Doc - Documentation Documentation: 50-year-old female with schizophrenia and suicidal ideation currently on 1013 awaiting inpatient placement. Vital signs unremarkable. P.o. potassium provided for hypokalemia. Meds initiated by mental health. Placement pending
[2021-07-26 14:38] VITALS: BP 124/78
[2021-07-26] MEDS ORDERED: traZODone 50 MG TAB PO SCH (22:00)
== END 2021-07-26 17:57 | disposition still patient (30) ==
LOC: ED 22:52
DX: F41.9 Anxiety disorder, unspecified (principal); F17.200 Nicotine dependence, unspecified, uncomplicated; Z20.822 Contact with and (suspected) exposure to COVID-19; Z72.89 Other problems related to lifestyle; Z79.899 Other long term (current) drug therapy; Z88.0 Allergy status to penicillin
CPT/HCPCS: 36415; 80048; 80164; 80307; 81001; 85025; 96372; 99284; J1630; J1631; J2060; U0003; 80320; G0480

== ENCOUNTER 2021-09-09 07:53 | Emergency (ER) | payer MEDICAID ==
[2021-09-09 09:53] VITALS: BP 148/74
--- NOTE | 2021-09-09 10:59 | Emergency Department Report ---
ED Recheck HPI - General Chief Complaint: Recheck/Abnormal Lab/Rx Stated Complaint: MED REFILL Time Seen by Provider: 09/09/21 10:43 Source: patient Mode of arrival: Ambulatory Limitations: No Limitations - History of Present Illness Initial Comments: Ms. Rowland is a 50-year-old female known to us in the ER. She presents to the emergency room asking to see her case management or for placement. She has no HI no SI. She comes with all of her suitcases. Patient is medically cleared Case management has been consulted. - Related Data Home Medications Medication Instructions Recorded Confirmed Last Taken Divalproex Sprinkle [DepaKOTE 125 mg PO BID 06/22/21 06/22/21 06/22/21 SPRINKLE] Previous Rx's Medication Instructions Recorded Last Taken Type Divalproex Sprinkle [Depakote 250 mg PO TID 30 Days #90 capsule 06/27/21 Unknown Rx Sprinkle] traZODone [Desyrel] 50 mg PO QHS 30 Days #30 tablet 06/27/21 Unknown Rx Allergies Allergy/AdvReac Type Severity Reaction Status Date / Time Penicillins Allergy Mild Anaphylaxis Verified 07/25/21 02:52 ED Review of Systems ROS: Stated complaint: MED REFILL Other details as noted in HPI Comment: All other systems reviewed and negative ED Past Medical Hx - Past Medical History Previous Medical History?: Yes Hx Congestive Heart Failure: No Hx Diabetes: No Hx Renal Disease: No Hx Arthritis: No Hx Seizures: No Hx Psychiatric Treatment: Yes Hx COPD: No Hx Dementia: No - Surgical History Past Surgical History?: No Hx Cholecystectomy: No Hx Appendectomy: No - Family History Family history: no significant - Social History Smoking Status: Light Tobacco Smoker Substance Use Type: Alcohol - Medications Home Medications: Home Medications Medication Instructions Recorded Confirmed Last Taken Type Divalproex Sprinkle [DepaKOTE 125 mg PO BID 06/22/21 06/22/21 06/22/21 History SPRINKLE] Divalproex Sprinkle [Depakote 250 mg PO TID 30 Days #90 capsule 06/27/21 Unknown Rx Sprinkle] traZODone [Desyrel] 50 mg PO QHS 30 Days #30 tablet 06/27/21 Unknown Rx ED Physical Exam - General Limitations: No Limitations General appearance: alert, in no apparent distress - Head Head exam: Present: atraumatic, normocephalic - Eye Eye exam: Present: normal appearance - ENT ENT exam: Present: mucous membranes moist - Neck Neck exam: Present: normal inspection - Respiratory Respiratory exam: Present: normal lung sounds bilaterally. Absent: respiratory distress - Cardiovascular Cardiovascular Exam: Present: regular rate, normal rhythm. Absent: systolic murmur, diastolic murmur, rubs, gallop - GI/Abdominal GI/Abdominal exam: Present: soft, normal bowel sounds - Extremities Exam Extremities exam: Present: normal inspection - Back Exam Back exam: Present: normal inspection - Neurological Exam Neurological exam: Present: alert, oriented X3 - Psychiatric Psychiatric exam: Present: normal affect, normal mood - Skin Skin exam: Present: warm, dry, intact, normal color. Absent: rash ED Course Vital Signs 09/09/21 09:50 Temperature 98.2 F Pulse Rate 72 Respiratory 16 Rate Blood Pressure 148/74 [Left] O2 Sat by Pulse 100 Oximetry ED Recheck MDM - Core Measures Measure Exclusions: not indicated - Medical Decision Making Patient medically cleared. She has requested to see case management. Dispo after case management has seen patient. Patient is also been given a list of [facility]. Patient has no medical emergency. Her vital signs are stable. She has no medical complaints. No HI. No SI no AV hallucinations. No paranoia. Vital Signs 09/09/21 09:50 Temperature 98.2 F Pulse Rate 72 Respiratory 16 Rate Blood Pressure 148/74 [Left] O2 Sat by Pulse 100 Oximetry Critical care attestation.: If time is entered above; I have spent that time in minutes in the direct care of this critically ill patient, excluding procedure time. ED Disposition Clinical Impression: Malingering Disposition: 01 HOME / SELF CARE / HOMELESS Is pt being admited?: No Does the pt Need Aspirin: No Condition: Stable Additional Instructions: see attached shelters Referrals: PRIMARY CAREMD [Primary Care Provider] - 3-5 Days Time of Disposition: 10:59
== END 2021-09-09 11:50 | disposition home or self-care (01) ==
LOC: ED 07:53
DX: Z76.5 Malingerer [conscious simulation] (principal); F17.200 Nicotine dependence, unspecified, uncomplicated; F10.20 Alcohol dependence, uncomplicated; Z88.0 Allergy status to penicillin
CPT/HCPCS: 99282

== ENCOUNTER 2021-09-09 11:59 | Emergency (ER) | payer MEDICAID ==
[2021-09-09 16:04] VITALS: BP 137/85
[2021-09-09 17:11] LABS: Eosinophils # (Auto) 0.1 K/mm3 (0.0-0.4); Eosinophils % (Auto) 1.4 % (0.0-4.3); Hemoglobin 12.9 gm/dl (10.1-14.3); Lymphocytes # (Auto) 1.5 K/mm3 (1.2-5.4); Lymphocytes % (Auto) 36.2 % (13.4-35.0); Mean Corpuscular HGB Conc 34 % (30-34); Mean Corpuscular Volume 91 fl (79-97); Monocytes # (Auto) 0.4 K/mm3 (0.0-0.8); Monocytes % (Auto) 9.3 % (0.0-7.3); Platelet Count 156 K/mm3 (140-440); Red Blood Count 4.18 M/mm3 (3.65-5.03)
--- NOTE | 2021-09-09 17:13 | Event Note ---
ED Screening Note ED Screening Note: Patient checked into the ER early this morning stating she went to see a correctional counselor/case manager at that time she had no HI no SI no AV hallucinations she was not responding to internal commands. She was medically cleared and discharged from the ER. She then returned to the desk and per the ER nurse was responding to internal commands. So I checked her back in. Is now 1700 and case management is gone. This initial assessment/diagnostic orders/clinical plan/treatment(s) is/are subject to change based on patients health status, clinical progression and re- assessment by fellow clinical providers in the ED. Further treatment and workup at subsequent clinical providers discretion. Patient/guardian urged not to elope from the ED as their condition may be serious if not clinically assessed and managed. Initial orders include: GAURANG she has been ordered
[2021-09-09 17:15] LABS: Red Cell Distribution Width 20.1 % (13.2-15.2)
[2021-09-09 17:28] LABS: Alanine Aminotransferase 7 units/L (7-56); Albumin 4.2 g/dL (3.9-5); Blood Urea Nitrogen 9 mg/dL (7-17); Calcium 9.5 mg/dL (8.4-10.2); Hemolysis Index 4
[2021-09-09 17:29] LABS: BUN/Creatinine Ratio 13
== END 2021-09-12 14:07 | disposition left against medical advice (07) ==
LOC: ED 11:59
DX: Z13.30 Encounter for screening examination for mental health and behavioral disorders, unspecified (principal); Z53.21 Procedure and treatment not carried out due to patient leaving prior to being seen by health care provider
CPT/HCPCS: 36415; 80053; 80320; 84443; 85025; G0480

== ENCOUNTER 2021-10-19 09:00 | Emergency (ER) | payer MEDICAID ==
[2021-10-19 09:28] VITALS: BP 133/82
== END 2021-10-20 00:14 | disposition left against medical advice (07) ==
LOC: ED 09:00
DX: Z13.30 Encounter for screening examination for mental health and behavioral disorders, unspecified (principal); Z53.21 Procedure and treatment not carried out due to patient leaving prior to being seen by health care provider

== ENCOUNTER 2021-11-05 06:40 | Emergency (ER) | payer MEDICAID ==
[2021-11-05 08:06] VITALS: BP 166/91
== END 2021-11-06 23:05 | disposition left against medical advice (07) ==
LOC: ED 06:40
DX: Z00.00 Encounter for general adult medical examination without abnormal findings (principal); Z53.21 Procedure and treatment not carried out due to patient leaving prior to being seen by health care provider

== ENCOUNTER 2021-11-06 12:53 | Emergency (ER) | payer MEDICAID ==
[2021-11-06 13:07] VITALS: BP 136/76
== END 2021-11-07 16:30 | disposition left against medical advice (07) ==
LOC: ED 12:53
DX: Z00.00 Encounter for general adult medical examination without abnormal findings (principal); Z53.21 Procedure and treatment not carried out due to patient leaving prior to being seen by health care provider

== ENCOUNTER 2021-11-08 13:29 | Emergency (ER) | payer MEDICAID ==
[2021-11-08 14:22] VITALS: BP 140/83
--- NOTE | 2021-11-08 15:00 | Event Note ---
ED Screening Note ED Screening Note: here for psych med refill no si no hi pos hallucinations responding to internal commands This initial assessment/diagnostic orders/clinical plan/treatment(s) is/are subject to change based on patients health status, clinical progression and re- assessment by fellow clinical providers in the ED. Further treatment and workup at subsequent clinical providers discretion. Patient/guardian urged not to elope from the ED as their condition may be serious if not clinically assessed and managed. Initial orders include: to main for MHE
[2021-11-09 10:08] LABS: Basophils % (Auto) 0.8 % (0.0-1.8); Eosinophils # (Auto) 0.1 K/mm3 (0.0-0.4); Eosinophils % (Auto) 1.5 % (0.0-4.3); Hematocrit 39.8 % (30.3-42.9); Hemoglobin 13.2 gm/dl (10.1-14.3); Lymphocytes # (Auto) 1.8 K/mm3 (1.2-5.4); Lymphocytes % (Auto) 33.4 % (13.4-35.0); Mean Corpuscular HGB Conc 33 % (30-34); Mean Corpuscular Volume 98 fl (79-97); Monocytes # (Auto) 0.3 K/mm3 (0.0-0.8); Monocytes % (Auto) 6.4 % (0.0-7.3); Platelet Count 191 K/mm3 (140-440); Red Blood Count 4.08 M/mm3 (3.65-5.03)
[2021-11-09 10:16] LABS: Blood Urea Nitrogen 5 mg/dL (7-17); Calcium 9.2 mg/dL (8.4-10.2); Hemolysis Index 8
[2021-11-09 10:22] LABS: BUN/Creatinine Ratio 8
--- NOTE | 2021-11-09 11:56 | Consultation ---
History of Present Illness - Reason for Consult Consult date: 11/09/21 Reason for consult: mental health eval - History of Present Psychiatric Illness The patient was seen today. She is a/o x 3. She appears slightly delusional, but overall able to communicate effectively. The patient says she was wanting to see her "psychologist social named Kendra that she saw last time when she was on the 5th floor." I tell the patient, that my name is Kendra. She says "no it was the lady who gave me the resources." The patient has medical records in her hand from another hospital. She tells me she was "at this place for three days but recently had to leave." The patient gives me a sheet with a picture of the facility, that says "[facility]." She says they call it "[facility]." The patient says one of the workers would not let her back in and she doesn't understand why. She says "I need to get back there." She says "I have no transportation." The patient says "no, I need a new order tho. I need someone to write me something saying I can go back." She says "If the psychologist social is here I'd like to talk to her." The patient denies SI/HI or hallucinations. The patient says she's been taking all over her meds. She says "no, I'm not any of that, but I do feel I need a bed because I don't feel well." The patient is complaining of a runny nose, fever and cough. Do not recommend acute psychiatric inpatient treatment. The patient's problems appear to be related to housing. The patient will need to speak with case management prior to discharge. PAST PSYCHIATRIC HISTORY: Diagnoses: schizophrenia Suicide attempts or Self-harm behavior: Denies Prior psychiatric hospitalizations: Yes Substance Abuse history: Denies Previous psychiatric medications tried: could not recall Outpatient treatment: not at present PAST MEDICAL HISTORY: None reported Family Psychiatric History: None reported or documented SOCIAL HISTORY Marital Status: Single Living Arrangements: [facility] Employment Status: Disabled Access to guns/weapons: Denies Education: History of Abuse: Denies Legal History: Denies REVIEW OF SYSTEMS Constitutional: Negative for weight loss ENT: Negative for stridor Respiratory: Negative for cough or hemoptysis All other systems reviewed and are negative Diagnoses: Schizophrenia Treatment Plan Case management consult per patient's request Continue previously prescribed meds Medical: per primary Sitter: Defer to primary Disposition: Do not recommend acute psychiatric inpatient treatment Will sign off. Thanks Case staffed with Dr. Pat Medications and Allergies Allergies Allergy/AdvReac Type Severity Reaction Status Date / Time Penicillins Allergy Mild Anaphylaxis Verified 11/05/21 08:07 Home Medications Medication Instructions Recorded Confirmed Last Taken Type Divalproex Sprinkle [DepaKOTE 125 mg PO BID 06/22/21 06/22/21 06/22/21 History SPRINKLE] Divalproex Sprinkle [Depakote 250 mg PO TID 30 Days #90 capsule 06/27/21 Unkn own Rx Sprinkle] traZODone [Desyrel] 50 mg PO QHS 30 Days #30 tablet 06/27/21 Unknown Rx Mental Status Exam - Vital signs Last Vital Signs Temp 98.9 F 11/08/21 14:19 Pulse 66 11/08/21 14:19 Resp 14 11/08/21 14:19 BP 140/83 11/08/21 14:19 Pulse Ox 100 11/08/21 14:19 Results Result Diagrams: 11/09/21 09:39 11/09/21 09:39 Abnormal lab results 11/09/21 11/09/21 11/09/21 Range/Units 09:39 09:39 09:39 MCV 98 H (79-97) fl RDW 16.0 H (13.2-15.2) % BUN 5 L (7-17) mg/dL Glucose 147 H (65-100) mg/dL Salicylates < 0.3 L (2.8-20.0) mg/dL Acetaminophen (10.0-30.0) ug/mL 11/09/21 Range/Units 09:39 MCV (79-97) fl RDW (13.2-15.2) % BUN (7-17) mg/dL Glucose (65-100) mg/dL Salicylates (2.8-20.0) mg/dL Acetaminophen 5.0 L (10.0-30.0) ug/mL All other labs normal.
--- NOTE | 2021-11-09 18:26 | Emergency Department Report ---
ED General Adult HPI - General Chief complaint: Medical Clearance Stated complaint: MED REFILLS PUI?: No Time Seen by Provider: 11/09/21 11:11 Source: patient Mode of arrival: Ambulatory Limitations: No Limitations - History of Present Illness Initial comments: pt reports she is here for psych meds to be refilled. pt denies SI. pt states she is hearing voices. -: unknown Radiation: non-radiation Severity scale (0 -10): 0 Worsens with: none Associated Symptoms: denies: denies other symptoms, confusion, chest pain - Related Data Home Medications Medication Instructions Recorded Confirmed Last Taken Divalproex Sprinkle [DepaKOTE 125 mg PO BID 06/22/21 06/22/21 06/22/21 SPRINKLE] Previous Rx's Medication Instructions Recorded Last Taken Type Divalproex Sprinkle [Depakote 250 mg PO TID 30 Days #90 capsule 06/27/21 Unknown Rx Sprinkle] traZODone [Desyrel] 50 mg PO QHS 30 Days #30 tablet 06/27/21 Unknown Rx Allergies Allergy/AdvReac Type Severity Reaction Status Date / Time Penicillins Allergy Mild Anaphylaxis Verified 11/05/21 08:07 ED Review of Systems ROS: Stated complaint: MED REFILLS Other details as noted in HPI Constitutional: denies: chills, fever Eyes: denies: eye pain, eye discharge, vision change ENT: denies: ear pain, throat pain Respiratory: denies: cough, shortness of breath, wheezing Cardiovascular: denies: chest pain, palpitations Endocrine: no symptoms reported Gastrointestinal: denies: abdominal pain, nausea, diarrhea Genitourinary: denies: urgency, dysuria, discharge Musculoskeletal: denies: back pain, joint swelling, arthralgia Skin: denies: rash, lesions Neurological: denies: headache, weakness, paresthesias Psychiatric: denies: anxiety, depression Hematological/Lymphatic: denies: easy bleeding, easy bruising ED Past Medical Hx - Past Medical History Hx Congestive Heart Failure: No Hx Diabetes: No Hx Renal Disease: No Hx Arthritis: No Hx Seizures: No Hx Psychiatric Treatment: Yes Hx COPD: No Hx Dementia: No - Surgical History Hx Cholecystectomy: No Hx Appendectomy: No - Social History Smoking Status: Unknown if ever smoked Substance Use Type: None - Medications Home Medications: Home Medications Medication Instructions Recorded Confirmed Last Taken Type Divalproex Sprinkle [DepaKOTE 125 mg PO BID 06/22/21 06/22/21 06/22/21 History SPRINKLE] Divalproex Sprinkle [Depakote 250 mg PO TID 30 Days #90 capsule 06/27/21 Unknown Rx Sprinkle] traZODone [Desyrel] 50 mg PO QHS 30 Days #30 tablet 06/27/21 Unknown Rx ED Physical Exam - General Limitations: No Limitations General appearance: alert, in no apparent distress - Head Head exam: Present: atraumatic, normocephalic - Eye Eye exam: Present: normal appearance - ENT ENT exam: Present: mucous membranes moist - Neck Neck exam: Present: normal inspection - Respiratory Respiratory exam: Present: normal lung sounds bilaterally. Absent: respiratory distress - Cardiovascular Cardiovascular Exam: Present: regular rate, normal rhythm. Absent: systolic murmur, diastolic murmur, rubs, gallop - GI/Abdominal GI/Abdominal exam: Present: soft, normal bowel sounds - Extremities Exam Extremities exam: Present: normal inspection - Back Exam Back exam: Present: normal inspection - Neurological Exam Neurological exam: Present: alert, oriented X3 - Psychiatric Psychiatric exam: Present: normal affect, normal mood - Skin Skin exam: Present: warm, dry, intact, normal color. Absent: rash ED Course Vital Signs 11/08/21 14:19 Temperature 98.9 F Pulse Rate 66 Respiratory 14 Rate Blood Pressure 140/83 [Right] O2 Sat by Pulse 100 Oximetry ED Medical Decision Making - Lab Data Result diagrams: 11/09/21 09:39 11/09/21 09:39 Critical care attestation.: If time is entered above; I have spent that time in minutes in the direct care of this critically ill patient, excluding procedure time. ED Disposition Clinical Impression: Schizophrenia Qualifiers: Schizophrenia type: unspecified Qualified Code(s): F20.9 - Schizophrenia, unspecified Disposition: HOME / SELF CARE / HOMELESS Is pt being admited?: No Does the pt Need Aspirin: No Condition: Stable Instructions: Schizophrenia Additional Instructions: Professional and Agency Contacts To help [facility](31/10) [place] Crisis Line: Suicide Prevention Line: Crisis Text Line: Text START to 000482 Emergency: 911 Outpatient COMMUNITY Behavioral Health Resources: SABINO: [facility] [address] [place], [place] [address] AARON: [facility] [address] [place] [address] JOHN: [facility] - [address] [place] [address] Monday thru Monday - 8am - 5pm [facility]: [facility] Service Address: [address] [place] [address] ESPINOZA: [facility] Address: [address] [place] [address] Monday thru Monday- 7am-2pm [facility] Address: [address] [place] [address] Monday thru Monday: 8:30AM-5PM Referrals: DAIJA PACE MD [Primary Care Provider] - 3-5 Days
== END 2021-11-09 18:55 | disposition home or self-care (01) ==
LOC: ED 13:29
DX: F20.9 Schizophrenia, unspecified (principal); Z76.0 Encounter for issue of repeat prescription; Z88.0 Allergy status to penicillin; Z79.899 Other long term (current) drug therapy
CPT/HCPCS: 36415; 80048; 80320; 85025; 99283; G0480